=== PATIENT | male | born 1935 | race Caucasian/White ===

== ENCOUNTER 2017-10-08 11:45 | Inpatient (IN) | payer OTHER, BC ==
--- NOTE | 2017-10-08 12:11 | CPEKG ---
Heart Rate: 179 RR Interval: 335 QRSD Interval: 90 QT Interval: 260 QTC Interval: 449 QRS Dayhoit: 81 T Wave Dayhoit: 212 EKG Severity - ABNORMAL ECG - EKG Impression: ATRIAL FIBRILLATION WITH RAPID V-RATE EKG Impression: VENTRICULAR PREMATURE COMPLEX EKG Impression: BORDERLINE RIGHT AXIS DEVIATION EKG Impression: BORDERLINE INFERIOR Q WAVES EKG Impression: REPOLARIZATION ABNORMALITY, PROB RATE RELATED Electronically Signed By: Sebas Riggs 08-Oct-2017 15:07:30
--- NOTE | 2017-10-08 12:13 | EDPHY ---
H & P Stated Complaint: sob x 2 days, palpitations, R arm redness-swelling Time Seen by Provider: 10/08/17 12:12 - Medical/Surgical History Hx Asthma: No Hx Chronic Respiratory Disease: No Hx Diabetes: No Hx Cardiac Disease: Yes Hx Renal Disease: No Hx Cirrhosis: No Hx Alcoholism: No Hx HIV/AIDS: No Hx Splenectomy or Spleen Trauma: No Other PMH: afib. cardiac stent. hyperlipidemia - Social History Smoking Status: Never smoked Constitutional: Initial Vital Signs Heart Rate 128 H 10/08/17 11:55 Respiratory Rate 20 10/08/17 11:55 Blood Pressure 105/78 10/08/17 11:55 O2 Sat (%) 94 10/08/17 11:55 O2 Delivery Mode Room Air O2 (L/minute) 2 Allergies/Adverse Reactions: No Known Allergies Allergy (Verified 10/08/17 11:53) Home Medications: Medication Instructions Recorded Ascorbic Acid [Vitamin C 500 mg 1,000 mg PO DAILY 10/08/17 (*)] Aspirin [Aspirin 325 mg (*)] 325 mg PO DAILY 10/08/17 Cephalexin [Keflex (*)] 500 mg PO TID 10/08/17 Cholecalciferol Vit D3 [Vitamin D3 5,000 units PO DAILY 10/08/17 (*)] Furosemide [Lasix 20 MG (*)] 20 mg PO DAILY 10/08/17 Herbals/Supplements -Info Only 1 ea PO DAILY 10/08/17 Magnesium Oxide [Magnesium Oxide 400 mg PO BID 10/08/17 400 mg (*)] Metoprolol Succinate Xr [Toprol Xl 50 mg PO BID 10/08/17 50 mg (*)] Naproxen 500 mg PO DAILY PRN 10/08/17 Omeprazole [Prilosec 20 mg] 20 mg PO DAILY 10/08/17 Potassium Cl [Klor-Con 20 meq (*)] 20 meq PO DAILY 10/08/17 Rosuvastatin Calcium [Crestor 40mg 40 mg PO DAILY 10/08/17 (*)] Spironolactone [Aldactone 25 MG 25 mg PO DAILY 10/08/17 (*)] Warfarin Sodium [Coumadin 2.5MG 2.5 mg PO SUMOTUTHFRSA@16 10/08/17 (*)] Warfarin Sodium [Coumadin 5MG (*)] 5 mg PO WE@16 10/08/17 diphenhydrAMINE [Benadryl 25 MG 25 mg PO HS 10/08/17 (*)] predniSONE [Prednisone] 10 mg PO DAILY PRN 10/08/17 Medical Decision Making ED Course/Re-evaluation: CHIEF COMPLAINT: Chest pain, rapid heart rate, dyspnea HISTORY OF PRESENT ILLNESS: The patient is an anticoagulated 81 y/o male with a history of atrial fibrillation complaining of chest pressure, dyspnea, and weakness onset possibly this morning or possibly a few days ago. The patient has difficulty determining exact onset of these symptoms. He required WILILS and cardioversion for rapid atrial fibrillation in 2009. 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 He is currently being treated for cellulitis of his right arm with antibiotics and his chest pain and dyspnea symptoms began sometime after that infection began. He notes his INR on , 4 days ago, was 5.5, but he has not taken any Coumadin since then. Patient is a poor historian and is able to provide more reliable history. REVIEW OF SYSTEMS: A 10 point review of systems was performed and is negative with the exception of the elements mentioned in the history of present illness. PHYSICAL EXAM: HR 180, BP, O2 Sat, RR. Temp noted General Appearance: Alert, well hydrated, appropriate, and non-toxic appearing. Head: Atraumatic without scalp tenderness or obvious injury Eyes: Pupils equal, round, reactive to light and accommodation, EOMI, no trauma , no injection. Nose: Atraumatic, no rhinorrhea, clear. Throat: Mucus membranes moist. Neck: Supple, nontender, no lymphadenopathy. Respiratory: No retractions, no distress, no wheezes, and no accessory muscle use. Lungs are clear to auscultation bilaterally. Cardiovascular: Rapid irregular rate and rhythm, no murmurs, rubs, or gallops. Good capillary refill all extremities. Gastrointestinal: Abdomen is soft, nontender, non-distended, no masses, no rebound, no guarding, no peritoneal signs. Musculoskeletal: Normal active ROM of all extremities, atraumatic. Neurological: Alert, appropriate, and interactive. The patient has non-focal cranial nerves, motor, sensory, and cerebellar exam. Skin: Cellulitis right arm, good turgor, no nodules on palpation. Past medical history: atrial fibrillation, CHF Past surgical history: Electrical cardioversion 2009 Family history: Noncontributory Social history: at bedside. Lives in [place]. Retired. Nonsmoker. Prior medical records reviewed including cardiology procedure note from 2009 for cardioversion. DIAGNOSTICS/PROCEDURES/CRITICAL CARE TIME: The 12 lead EKG was interpreted by myself. Rapid atrial fibrillation rate 180. See hard copy and/or "tracemaster" electronic copy for interpretation. Critical care time spent by me, Dr. Riggs, exclusively with this patient was 90 minutes, exclusive of PA time and exclusive of procedures. The organ system at risk was cardiovascular. Time spent in urgent assessment, consideration of interventions, review of medical history, discussion with patient and family, review of EKG, and multiple consultations with cardiology.. DIFFERENTIAL DIAGNOSIS: The differential diagnosis for the patient's narrow complex tachycardia included but was not limited to various causes of sinus tachycardia such as dehydration and medicines, SVT, atrial flutter, atrial fibrillation, pulmonary causes. MEDICAL DECISION MAKING: This is an 81 y/o male with a history of atrial fibrillation who presents with an unstable tachydysrhythmia with dyspnea and chest pressure of uncertain onset (hours to days). He is symptomatic with a HR of 180 upon arrival here. He has not taken Coumadin for 4 days due to last INR of 5.5. Prior cardioversion required WILLIS and showed an atrial appendage thrombus. Although this is an unstable tachydysrhythmia, it is not safe to cardiovert him immediately down here due to high risk for thrombus. Plan for rate control with 20mg IV Diltazem bolus and 20mg/hr drip, rushed INR, WILLIS, and cardioversion upstairs with cardiology. 1230: Consulted with [facility]. Dr. Paige will assess in the ED. 1244: Spoke with hospitalist service. Dr. Davis accepts admission. Patient is subtherapeutic on his Coumadin at 1.25. Rate currently between 150-160. 1300: BP now in 60s systolic. HR between 150-180. He is still mentating appropriately. I called cardiology again as they have not assessed him yet in the ED. They said bring him to the [facility] now for cardioversion. 1306: RN called to give report and was told they now do not plan to cardiovert and want him admitted to the hospitalist service with medication management instead. I am calling Dr. Paige again so it is clear that the patient is unstable, hypotensive, symptomatic and needs to be cardioverted now. 1308: Spoke with Dr. Paige. He says the message that the patient was unstable was not relayed to him. He says Dr. Lemus, rough rice tender, will come down to the ED. 1313: Dr. Lemus in the ED assessing patient. Troponin elevated at 0.043. BNP elevated at 3640. 1355: Patient has left the department for the [facility]. - Data Points Laboratory Results: Laboratory Results 10/08/17 12:15 10/08/17 12:29 10/08/17 10/08/17 10/08/17 12:29 12:22 12:15 WBC 10.39 10^3/uL H 10^3/uL (3.80-9.50) RBC 6.76 10^6/uL H 10^6/uL (4.40-6.38) Hgb 16.7 g/dL g/dL (13.7-17.5) Hct 52.6 % H % (40.0-51.0) MCV 77.8 fL L fL (81.5-99.8) MCH 24.7 pg L pg (27.9-34.1) MCHC 31.7 g/dL L g/dL (32.4-36.7) RDW 21.0 % H % (11.5-15.2) Plt Count 221 10^3/uL 10^3/uL (150-400) MPV 10.4 fL fL (8.7-11.7) Neut % (Auto) 71.3 % % (39.3-74.2) Lymph % (Auto) 13.0 % L % (15.0-45.0) [place] % (Auto) 13.8 % H % (4.5-13.0) Eos % (Auto) 0.5 % L % (0.6-7.6) Baso % (Auto) 0.5 % % (0.3-1.7) Nucleat RBC Rel Count 0.0 % % (0.0-0.2) Absolute Neuts (auto) 7.42 10^3/uL H 10^3/uL (1.70-6.50) Absolute Lymphs (auto) 1.35 10^3/uL 10^3/uL (1.00-3.00) Absolute Monos (auto) 1.43 10^3/uL H 10^3/uL (0.30-0.80) Absolute Eos (auto) 0.05 10^3/uL 10^3/uL (0.03-0.40) Absolute Basos (auto) 0.05 10^3/uL 10^3/uL (0.02-0.10) Absolute Nucleated RBC 0.00 10^3/uL 10^3/uL (0-0.01) Immature Gran % 0.9 % % (0.0-1.1) Immature Gran # 0.09 10^3/uL 10^3/uL (0.00-0.10) Platelet Estimate ADEQUATE (ADEQ) Polychromasia 1+ H Microcytic Cells 2+ H PT 15.9 SEC H SEC (12.0-15.0) INR 1.25 H (0.83-1.16) APTT 31.4 SEC SEC (23.0-38.0) Sodium 129 mEq/L L mEq/L (135-145) Potassium 4.2 mEq/L mEq/L (3.5-5.2) Chloride 93 mEq/L L mEq/L (97-110) Carbon Dioxide 21 mEq/l L mEq/l (22-31) Anion Gap 15 mEq/L mEq/L (8-16) BUN 21 mg/dL mg/dL (7-23) Creatinine 0.9 mg/dL mg/dL (0.7-1.3) Estimated GFR > 60 Glucose 201 mg/dL H mg/dL (70-100) Calcium 8.6 mg/dL mg/dL (8.5-10.4) Troponin I 0.043 ng/mL H ng/mL (0.000-0.034) NT-Pro-B Natriuret Pep 3640 pg/mL H pg/mL (0-450) Medications Given: Discontinued Medications Diltiazem HCl (Cardizem 25 Mg/5 Ml Vial) 20 mg IVP EDNOW ONE Stop: 10/08/17 12:29 Last Admin: 10/08/17 12:33 Dose: 20 mg Diltiazem HCl 125 mg/ Dextrose 125 mls @ 0 mls/hr IV EDNOW ONE; Titrate PRN Reason: Protocol Stop: 10/08/17 12:29 Last Admin: 10/08/17 12:56 Dose: 125 mls Departure - Departure Disposition: [facility] Inpatient Acute Clinical Impression: Rapid atrial fibrillation, Subtherapeutic anticoagulation, Elevated troponin Chest pain Qualifiers: Chest pain type: other chest pain Qualified Code(s): R07.89 - Other chest pain Dyspnea Qualifiers: Dyspnea type: shortness of breath Qualified Code(s): R06.02 - Shortness of breath Condition: Fair Referrals: Gold Stringer MD [Medical Doctor] - As per Instructions Report Scribed for: Sebas Riggs Report Scribed by: Jenny Childs Date of Report: 10/08/17 Time of Report: 12:45
[2017-10-08] MEDS ORDERED: PROPOFOL 200 MG/20 ML VIAL ONE ×2 (12:20→14:45)
[2017-10-08] MEDS ORDERED: KETAMINE 200 MG/20 ML VIAL ONE (12:20)
[2017-10-08] MEDS ORDERED: DILTIAZEM 125 MG in D5W 125 ML IV ONE (12:28)
[2017-10-08] MEDS ORDERED: DILTIAZEM 25 MG/5 ML VIAL IVP ONE (12:28)
[2017-10-08 12:33] LABS: PLATELET COUNT 221 10^3/uL (150-400)
[2017-10-08 12:39] LABS: INR 1.25 (0.83-1.16); PROTIME(PATIENT) 15.9 SEC (12.0-15.0)
[2017-10-08] MEDS ORDERED: ATROPINE SULFATE 1 MG/10 ML SYR IVP ONE ×2 (13:28→14:05)
[2017-10-08] MEDS ORDERED: NS 1,000 ML IV ONE (13:28)
[2017-10-08] MEDS ORDERED: ACETAMINOPHEN 325 MG TAB PO PRN (13:32)
[2017-10-08] MEDS ORDERED: ONDANSETRON DISINTEGRATING 4 MG TAB PO PRN (13:32)
[2017-10-08] MEDS ORDERED: ONDANSETRON 4 MG/2 ML VIAL IVP PRN (13:32)
[2017-10-08] MEDS ORDERED: NS 1,000 ML IV SCH (13:45)
[2017-10-08] MEDS ORDERED: MIDAZOLAM 2 MG/2 ML VIAL IVP ONE (14:05)
[2017-10-08] MEDS ORDERED: fentaNYL 100 MCG/2 ML INJ IVP ONE (14:05)
[2017-10-08] MEDS ORDERED: BENZOCAINE UNIT DOSE SPRAY HURRICAINE MM ONE (14:05)
[2017-10-08] MEDS ORDERED: NS 500 ML IV ONE (14:05)
--- NOTE | 2017-10-08 14:13 | PDHPUP ---
History & Physical Update H&P update statement: This history and physical update is based on an assessment of the patient which was completed after admission or registration (within 24 hours), but prior to the surgery/procedure. H&P update: H&P reviewed & patient examined, no change in patient's condition since H&P completed
[2017-10-08] MEDS ORDERED: ENOXAPARIN 80 MG/0.8 ML SYR SC ONE (14:30)
[2017-10-08] MEDS ORDERED: predniSONE 10 MG TAB PO PRN (14:35)
[2017-10-08] MEDS ORDERED: WARFARIN SODIUM 2.5 MG TAB PO ONE (14:37)
--- NOTE | 2017-10-08 14:45 | PDANEPAE ---
ANE History of Present Illness 81 yo for obie/cv ANE Past Medical History - Cardiovascular History Hx Hypertension: Yes Hx Arrhythmias: Yes Hx Coronary Artery / Peripheral Vascular Disease: Yes - Pulmonary History Hx Oxygen in Use at Home: No - Endocrine History Hx Diabetes: No ANE Review of Systems Review of Systems: - Exercise capacity METS (RN): 4 METS ANE Patient History - Allergies Allergies/Adverse Reactions: No Known Allergies Allergy (Verified 10/08/17 11:53) - Home Medications Home medications: home medication list seen and reviewed Home Medications: Ascorbic Acid [Vitamin C 500 mg (*)] 1,000 mg PO DAILY 10/08/17 [Last Taken 04/13] Aspirin [Aspirin 325 mg (*)] 325 mg PO DAILY 10/08/17 [Last Taken 10/04/17] Cephalexin [Keflex (*)] 500 mg PO TID 10/08/17 [Last Taken 10/08/17] Cholecalciferol Vit D3 [Vitamin D3 (*)] 5,000 units PO DAILY 10/08/17 [Last Taken 10/04/17] Furosemide [Lasix 20 MG (*)] 20 mg PO DAILY 10/08/17 [Last Taken 10/08/17] Herbals/Supplements -Info Only 1 ea PO DAILY 10/08/17 [Last Taken Unknown] Magnesium Oxide [Magnesium Oxide 400 mg (*)] 400 mg PO BID 10/08/17 [Last Taken 10/04/17] Metoprolol Succinate Xr [Toprol Xl 50 mg (*)] 50 mg PO BID 10/08/17 [Last Taken 10/08/17] Naproxen 500 mg PO DAILY PRN 10/08/17 [Last Taken Unknown] Omeprazole [Prilosec 20 mg] 20 mg PO DAILY 10/08/17 [Last Taken 10/04/17] Potassium Cl [Klor-Con 20 meq (*)] 20 meq PO DAILY 10/08/17 [Last Taken 10/04/17 ] Rosuvastatin Calcium [Crestor 40mg (*)] 40 mg PO DAILY 10/08/17 [Last Taken 04/13] Spironolactone [Aldactone 25 MG (*)] 25 mg PO DAILY 10/08/17 [Last Taken ] Warfarin Sodium [Coumadin 2.5MG (*)] 2.5 mg PO SUMOTUTHFRSA@16 10/08/17 [Last Taken 10/04/17] Warfarin Sodium [Coumadin 5MG (*)] 5 mg PO WE@16 10/08/17 [Last Taken 10/03/17] diphenhydrAMINE [Benadryl 25 MG (*)] 25 mg PO HS 10/08/17 [Last Taken 10/04/17] predniSONE [Prednisone] 10 mg PO DAILY PRN 10/08/17 [Last Taken Unknown] - Smoking Hx Smoking Status: Never smoked ANE Labs/Vital Signs - Labs Result Diagrams: 10/08/17 12:15 10/08/17 12:29 - Vital Signs Blood Pressure: 112/98 Heart Rate: 169 Respiratory Rate: 16 O2 Sat (%): 95 Weight: 81.647 kg ANE Physical Exam - Airway Neck exam: FROM Mallampati Score: Class 2 Mouth exam: normal dental/mouth exam - Pulmonary Pulmonary: no respiratory distress - Cardiovascular Cardiovascular: regular rate and rhythym - ASA Status ASA Status: II ANE Anesthesia Plan Anesthesia Plan: GA with mask
--- NOTE | 2017-10-08 14:53 | GCON ---
[f rep st] CONSULTATION DATE OF CONSULTATION: 10/08/2017 REFERRING PHYSICIAN: Sebas Riggs MD OTHER REFERRING PHYSICIAN: Dr. Segundo Davis, from the hospitalist service. REASON FOR CONSULTATION: Atrial fibrillation with rapid ventricular response. HISTORY OF PRESENT ILLNESS: The patient presents to the emergency room today complaining of fairly a cute onset of significant shortness of breath. He felt fairly well yesterday, but this morning got u p to get around and was experiencing significant dyspnea. He did not have any chest discomfort. He did not feel a sensation of rapid palpitations. He is usually followed at [facility]. I n fact, he had an appointment with Dr. Moi Stringer scheduled for this afternoon. However, he felt so poorly that they called to cancel that appointment and came to the emergency room. In the ER, he was found to be in atrial fibrillation with a rapid ventricular heart rate. His ventricular rate was in the range of 150-160 bpm. The first blood pressure recorded was 105/78. He became hypotensive afte r receiving a bolus dose of intravenous diltiazem. At the time of my assessment, his blood pressure is back to 105 mmHg systolic. He appears to be comfortable in the emergency room and does not demons trate significant signs of fluid overload. He has a history of CAD with prior PCIs of the circumflex and LAD performed in 2009. 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 Past assessments have shown preserved left vent ricular systolic function. He had his last echocardiogram and stress test at [facility] approximately a year ago. He had atrial fibrillation in 2009, which required cardioversion. He has not had recurrences of atrial fibrillation over the ensuing 8 years. He is on chronic systemic antic oagulation with warfarin. Recently, he has tended to be supratherapeutic. He was seen in the emerge ncy room at [facility] last for a right forearm cellulitis. His INR at that t dali was 5.5. He held his warfarin for the past 4 days and now his INR is 1.2. PAST MEDICAL HISTORY: Apart from the cardiovascular issues outlined above, he is generally healthy. He does not have hypertension, pulmonary, GI, renal, or neurologic disease. He was given a diagnosi s of type 2 diabetes at the beginning of this year and had been working on dietary changes for manage ment. MEDICATIONS: Please refer to the electronic record. Relevant cardiac medications consist of aspirin , potassium supplement, warfarin, spironolactone, rosuvastatin, metoprolol, and furosemide. ALLERGIES: No known drug allergies. SOCIAL HISTORY: He is . His accompanies him to the hospital today. He is a nonsmoker a nd does not consume significant amounts of alcohol. REVIEW OF SYSTEMS: Notable for his significant shortness of breath and right forearm swelling and di scomfort. Otherwise, a 10-point review was negative. PHYSICAL EXAMINATION: VITAL SIGNS: Heart rate 150s with atrial fibrillation on the monitor. Blood pressure 112/98. Room air O2 saturation 95%. GENERAL: Well-developed, obese male in no acute distr ess. He is alert and oriented x3. HEAD AND NECK: No scleral icterus. Mucous membranes moist. Car otid pulses 2+ without bruits. CHEST: Lung mello clear to auscultation bilaterally. CARDIAC: Tac hycardic. Irregularly irregular rhythm, without a murmur. ABDOMEN: Obese, soft, and nontender, wit hout masses. Normal bowel sounds. EXTREMITIES: 2+ pulses and no peripheral edema. LABORATORY STUDIES: Sodium 129, potassium 4.2, BUN and creatinine 21 and 0.9. Troponin is 0.043. H is BNP is 3640. CBC demonstrates a white blood cell count of 10.3, with hemoglobin and hematocrit of 16.7 and 52.6. Platelet count 220,000. His INR is 1.25. ECG: His ECG demonstrates atrial fibrillation with a ventricular rate of 179 bpm. He has no Q-waves or conduction system disturbances. He has nonspecific ST-T wave abnormalities. IMPRESSION: This is an 81-year-old male who has history of coronary artery disease and prior percuta neous coronary interventions. He has had paroxysmal atrial fibrillation requiring cardioversion in 2 010. He now presents with recurrent atrial fibrillation and rapid ventricular response. Initial att empts at pharmacologic therapy for rate control produced hypotension. This has resolved. He does no t demonstrate any gross evidence of volume overload/congestive heart failure. His BNP is elevated an d he likely has a component of diastolic dysfunction. His mild troponin elevation likely represents myocardial supply/demand mismatch in the setting of his tachycardia. He is not experiencing any symp toms suggestive of angina. PLAN: Preparations will be made for the patient to go to the [facility] this afternoon for WILLIS guided cardi oversion. He will then be admitted to the hospitalist service for observation. His blood sugars hav e continued to escalate despite his recent attempts at dietary modification. He has a right forearm cellulitis for which he has been taking outpatient antibiotics with little improvement. /[id number]/MODL
--- NOTE | 2017-10-08 15:07 | POSTANESTH ---
Post Anesthetic Evaluation Cardiovascular Status: Normal, Stable Respiratory Status: Normal, Stable Level of Consciousness/Mental Status: Can Participate in Eval Pain Control: Adequate, Prn Tx Ordered Nausea/Vomiting Control: Adequate, Prn Tx Ordered Complications Possibly Related to Anesthesia: None Noted
--- NOTE | 2017-10-08 15:09 | CPEKG ---
Heart Rate: 84 RR Interval: 714 P-R Interval: 107 QRSD Interval: 92 QT Interval: 360 QTC Interval: 426 P Tiona: 0 QRS Tiona: 69 T Wave Tiona: 145 EKG Severity - ABNORMAL ECG - EKG Impression: SINUS RHYTHM EKG Impression: MULTIPLE ATRIAL PREMATURE COMPLEXES EKG Impression: SHORT [place] INTERVAL, ACCELERATED AV CONDUCTION EKG Impression: ABNORMAL T, CONSIDER ISCHEMIA, LATERAL LEADS Electronically Signed By: Damian Reardon 09-Oct-2017 11:49:11
--- NOTE | 2017-10-08 15:23 | PDTEE1 ---
WILLIS Cardioversion Procedure Procedure: electrical cardioversion Indications: atrial fibrillation Consent: signed and in chart Anticoagulation: warfarin Procedural Details: Pads were placed in anterior-posterior position. WILLIS probe was advanced and standard images obtained. There is no evidence of left atrial or left atrial appendage thrombus. Synchronized cardioversion attempt #1: 200J Results: normal sinus rhythm Conclusions: successful WILLIS cardioversion Patient Problems: Problems Problem Status Onset Chest pain Acute Dyspnea Acute Elevated troponin Acute Rapid atrial fibrillation Acute Subtherapeutic anticoagulation Acute
--- NOTE | 2017-10-08 16:37 | PDGENHP ---
History and Physical - Chief Complaint Acute shortness of breath - History of Present Illness Primary care provider: Dr. crump Primary low emission automobile designer: Dr. Moi Stringer HPI: 81-year-old male presenting with acute shortness of breath characterized as inability to ambulate several steps without becoming severely dyspneic, with associated chest pressure located in the anterior central chest, as well as palpitations and generalized weakness. The onset of the symptoms was on the morning of presentation, duration was persistent thereafter. The patient was in atrial fibrillation and rate of 170, with a systolic blood pressure that dropped down to 60 in the emergency department. The decision was made for emergent DC cardioversion with transesophageal echocardiogram prior to the procedure given the patient's subtherapeutic INR. The symptoms occurred in the setting of approximately 1 week of right upper extremity edema, erythema, tenderness, for which the patient was seen in the [facility] Emergency Department approximately 5 days ago. The patient was prescribed oral Keflex and he initiated on 10/04, without any appreciable benefit. During this interval, the patient has noted significant fatigue, increased sleepiness, poor oral intake, and nausea exacerbated with oral intake of solids and liquids. The patient has been taking his home medications with the exception of Coumadin, which was discontinued last week in the setting of an INR of 5.5. History Information - Allergies/Home Medication List Allergies/Adverse Reactions: No Known Allergies Allergy (Verified 10/08/17 11:53) Home Medications: Ascorbic Acid [Vitamin C 500 mg (*)] 1,000 mg PO DAILY 10/08/17 [Last Taken 04/13] Aspirin [Aspirin 325 mg (*)] 325 mg PO DAILY 10/08/17 [Last Taken 10/04/17] Cephalexin [Keflex (*)] 500 mg PO TID 10/08/17 [Last Taken 10/08/17] Cholecalciferol Vit D3 [Vitamin D3 (*)] 5,000 units PO DAILY 10/08/17 [Last Taken 10/04/17] Furosemide [Lasix 20 MG (*)] 20 mg PO DAILY 10/08/17 [Last Taken 10/08/17] Herbals/Supplements -Info Only 1 ea PO DAILY 10/08/17 [Last Taken Unknown] Magnesium Oxide [Magnesium Oxide 400 mg (*)] 400 mg PO BID 10/08/17 [Last Taken 10/04/17] Metoprolol Succinate Xr [Toprol Xl 50 mg (*)] 50 mg PO BID 10/08/17 [Last Taken 10/08/17] Naproxen 500 mg PO DAILY PRN 10/08/17 [Last Taken Unknown] Omeprazole [Prilosec 20 mg] 20 mg PO DAILY 10/08/17 [Last Taken 10/04/17] Potassium Cl [Klor-Con 20 meq (*)] 20 meq PO DAILY 10/08/17 [Last Taken 10/04/17 ] Rosuvastatin Calcium [Crestor 40mg (*)] 40 mg PO DAILY 10/08/17 [Last Taken 04/13] Spironolactone [Aldactone 25 MG (*)] 25 mg PO DAILY 10/08/17 [Last Taken ] Warfarin Sodium [Coumadin 2.5MG (*)] 2.5 mg PO SUMOTUTHFRSA@16 10/08/17 [Last Taken 10/04/17] Warfarin Sodium [Coumadin 5MG (*)] 5 mg PO WE@16 10/08/17 [Last Taken 10/03/17] diphenhydrAMINE [Benadryl 25 MG (*)] 25 mg PO HS 10/08/17 [Last Taken 10/04/17] predniSONE [Prednisone] 10 mg PO DAILY PRN 10/08/17 [Last Taken Unknown] I have personally reviewed and updated: family history, medical history, social history, surgical history - Past Medical History atrial fibrillation (With DC cardioversion and transesophageal echocardiogram in 2009, atrial appendage noted, placed on systemic anticoagulation thereafter) , coronary artery disease (Status post 2 stents placed in 2009), diabetes type 2 (But most recent hemoglobin A1c 10%, no pharmacotherapy), hyperlipidemia Additional medical history: Recent diagnosis of right upper extremity cellulitis , began with a notable bullous on the right ventral forearm - Surgical History Additional surgical history: Cardiac stent, DC cardioversion - Family History Additional family history: No family history of venous thromboembolism or skin disorders - Social History Smoking Status: Never smoked Alcohol Use: None Drug Use: None Additional social history: Patient reports that he is physically active at baseline, he last used a stationary bike 5 days ago and did not experience any chest pain or shortness of breath Review of Systems Review of Systems: ROS: 10pt was reviewed & negative except for what was stated in HPI & below Constitutional: Reports: weakness Cardiac: Reports: chest pain, palpitations Respiratory: Reports: shortness of breath Skin: Reports: other (Erythema and edema in the right upper extremity) Physical Exam Physical Exam: Temp Pulse Resp BP Pulse Ox 169 H 16 112/98 H 95 10/08/17 14:45 10/08/17 14:45 10/08/17 14:45 10/08/17 14:45 O2 (L/minute) 2 Constitutional: uncomfortable, No not in pain (Mild right upper extremity) Eyes: PERRL, anicteric sclera, EOMI Ears, Nose, Mouth, Throat: hearing normal, other (Tacky mucous membranes) Cardiovascular: irregularly irregular, tachycardia, edema (2+ right upper extremity), No systolic murmur Respiratory: reduced air movement (Bilateral bases), inspiratory crackles ( Bilaterally), No expiratory wheeze, No bronchial breath sounds Gastrointestinal: normoactive bowel sounds, soft, non-tender abdomen, no palpable masses, No distension Skin: other (Induration, soft tissue edema in the right upper extremity, fluctuance around the right elbow, blanchable, could fluid over the entire forearm, extending proximally into the right humerus) Musculoskeletal: other (Painful extension at 160 degrees in the right upper extremity, painful flexion at 60 degrees right upper extremity, tenderness over the right olecranon bursa which is fluctuant) Neurologic: AAOx3, sensation intact bilaterally, No weakness, No facial droop Psychiatric: interacting appropriately, not anxious, not encephalopathic, thought process linear Lab Data & Imaging Review 10/08/17 12:15 10/08/17 12:29 WBC 10.39 10^3/uL (3.80-9.50) H 10/08/17 12:15 RBC 6.76 10^6/uL (4.40-6.38) H 10/08/17 12:15 Hgb 16.7 g/dL (13.7-17.5) 10/08/17 12:15 Hct 52.6 % (40.0-51.0) H 10/08/17 12:15 MCV 77.8 fL (81.5-99.8) L 10/08/17 12:15 MCH 24.7 pg (27.9-34.1) L 10/08/17 12:15 MCHC 31.7 g/dL (32.4-36.7) L 10/08/17 12:15 RDW 21.0 % (11.5-15.2) H 10/08/17 12:15 Plt Count 221 10^3/uL (150-400) 10/08/17 12:15 MPV 10.4 fL (8.7-11.7) 10/08/17 12:15 Neut % (Auto) 71.3 % (39.3-74.2) 10/08/17 12:15 Lymph % (Auto) 13.0 % (15.0-45.0) L 10/08/17 12:15 [place] % (Auto) 13.8 % (4.5-13.0) H 10/08/17 12:15 Eos % (Auto) 0.5 % (0.6-7.6) L 10/08/17 12:15 Baso % (Auto) 0.5 % (0.3-1.7) 10/08/17 12:15 Nucleat RBC Rel Count 0.0 % (0.0-0.2) 10/08/17 12:15 Absolute Neuts (auto) 7.42 10^3/uL (1.70-6.50) H 10/08/17 12:15 Absolute Lymphs (auto) 1.35 10^3/uL (1.00-3.00) 10/08/17 12:15 Absolute Monos (auto) 1.43 10^3/uL (0.30-0.80) H 10/08/17 12:15 Absolute Eos (auto) 0.05 10^3/uL (0.03-0.40) 10/08/17 12:15 Absolute Basos (auto) 0.05 10^3/uL (0.02-0.10) 10/08/17 12:15 Absolute Nucleated RBC 0.00 10^3/uL (0-0.01) 10/08/17 12:15 Immature Gran % 0.9 % (0.0-1.1) 10/08/17 12:15 Immature Gran # 0.09 10^3/uL (0.00-0.10) 10/08/17 12:15 Platelet Estimate ADEQUATE (ADEQ) 10/08/17 12:15 Polychromasia 1+ H 10/08/17 12:15 Microcytic Cells 2+ H 10/08/17 12:15 PT 15.9 SEC (12.0-15.0) H 10/08/17 12:22 INR 1.25 (0.83-1.16) H 10/08/17 12:22 APTT 31.4 SEC (23.0-38.0) 10/08/17 12: Sodium 129 mEq/L (135-145) L 10/08/17 12:29 Potassium 4.2 mEq/L (3.5-5.2) 10/08/17 12: Chloride 93 mEq/L (97-110) L 10/08/17 12: Carbon Dioxide 21 mEq/l (22-31) L 10/08/17 12: Anion Gap 15 mEq/L (8-16) 10/08/17 12: BUN 21 mg/dL (7-23) 10/08/17 12: Creatinine 0.9 mg/dL (0.7-1.3) 10/08/17 12: Estimated GFR > 60 10/08/17 12: Glucose 201 mg/dL (70-100) H 10/08/17: Calcium 8.6 mg/dL (8.5-10.4) 10/08/17 12: Troponin I 0.043 ng/mL (0.000-0.034) H 10/08/17 12:29 NT-Pro-B Natriuret Pep 3640 pg/mL (0-450) H 10/08/17 12:29 Visualized and Interpreted Chest x-ray results: Yes Chest X-Ray results: other (Bilateral interstitial infiltrates with small right- sided effusion) Visualized and Interpreted EKG results: Yes EKG Interpretation: Positive for: other (Rapid AFib with ST depression in the lateral leads) Assessment & Plan Assessment: 81-year-old male presents with paroxysmal atrial fibrillation and acute rapid ventricular response resulting in acute hypotension in the setting of right upper extremity cellulitis Plan: 1. Paroxysmal atrial fibrillation. Acute rapid ventricular response, likely provoked by patient's cellulitis and resulting in diastolic congestive heart failure exacerbation as well as possible hemodynamic instability and acute hypotension -discussed with Dr. Moi Lemus, we both agree the patient requires emergent DC cardioversion at this time preceded by transesophageal echocardiogram to ensure no atrial thrombus in the setting of subtherapeutic INR -continue on home beta-cristofer therapy after patient has been successfully cardioverted, monitor for any ongoing hypotension -continue monitor on telemetry and if the patient experiences recurrent AFib, consider amiodarone load -continue systemic anticoagulation with therapeutic Lovenox, re-initiation of Coumadin today, 5 mg, then regular home dosing thereafter -monitor daily INR 2. Cellulitis. Right upper extremity, unclear whether there is underlying septic bursitis, his range of motion and tenderness over the olecranon bursa is concerning but I would not recommend putting a needle in the area given the overlying cellulitis and possibility of creating septic joint -patient has failed outpatient oral antibiotic therapy with a reasonable course of Keflex 500 mg 4 times daily x4 days -per patient, the area is worsening, will place on IV vancomycin 1.25g q.12 hours -get ultrasound of the right olecranon bursa as well as right mid forearm to evaluate for abscess or abnormal bursa fluid collection -will get Infectious Disease consultation tomorrow if the affected area does not appear to be improving -will get [facility] Emergency Department records to compare with the initial assessment as well as any imaging results 3. Hyponatremia. Acute, most likely secondary to renal hypoperfusion in the setting of hypotension, cardiovert back into a normal sinus mechanism to improve cardiac output -monitor strict I&Os, creatinine level in a.m. 4. Acute diastolic congestive heart failure exacerbation. Secondary to AFib RVR, the patient with clear evidence of renal hypoperfusion and hypotension from poor cardiac output, resulting in interstitial infiltrates, BNP of 3600, troponin of 0.04 indicating myocardial strain and increasing his risk of worsening morbidity and/or mortality -cardioversion is the intervention of choice to improve cardiac output -hold on diuresis until oxygen requirements reassessed tomorrow a.m. 5. Coronary artery disease. Chronic, elevated troponin most likely secondary to myocardial strain in the setting of AFib RVR and diastolic CHF -continue aspirin 6. Hypotension. Acute, secondary to poor cardiac output in the setting of rapid AFib and hypovolemia -35 min of critical care time spent with this patient and his , coordinating care with Dr. Mio Lemus and the emergency department, addressing this issue specifically as well as the other comorbid conditions which render him critically ill with high risk of worsening morbidity and/or mortality and requiring emergent DC cardioversion Diet. Regular after cardioversion Prophylaxis. High risk patient, on Lovenox Code. Full per patient, his is MD POA Disposition. Anticipated discharge uncertain this time, anticipated length stay is greater than 48 hr for reasonable medical necessity including acute cellulitis refractory to appropriate oral outpatient therapy, complicated by high risk comorbid acute hypotension, paroxysmal atrial fibrillation with acute rapid acute hyponatremia, acute diastolic congestive heart failure.
--- NOTE | 2017-10-08 17:22 | ECHO ---
[email or web address] [address] [address] Main: [phone] Fax: Transesophageal Echocardiography Name: VENU STAUFFER MR#: [id number] Study Date: 10/08/2017 Study Time: 02:42 PM Date of : 1935 Age: 81 year(s) Height: ( ) Weight: ( ) BSA: Gender: Male Examination: WILLIS Indication: Atrial Fibrillation Image Quality: Contrast: Requested by: Moi Lemus Heart Rate: Rhythm: BP: / Procedure Staff Assistant Professor Of Anthropology: Corrine Penaloza RDCS Reading Physician: Moi Lemus Requesting Provider: WILLIS Exam Details Measurements: Chambers Valvular Assessment AV/MV Valvular Assessment TV/PV Normal Normal Normal Name Value Range Name Value Range Name Value Range Additional Measurements: Findings: Left Ventricle: Normal global systolic LV function. Left Atrium: No thrombus is noted in the left atrium. Left Atrial Appendage: No thrombus in left appendage. Mitral Valve: Mild mitral valve regurgitation is present. Aortic Valve: The aortic valve is tri-leaflet. There is no aortic valve regurgitation. l1n (No Signature Object) Patient: VENU STAUFFER Study Date: 10/08/2017 Page 1 of 2 02:42 PM Patient: VENU STAUFFER Study Date: 10/08/2017 Page 2 of 2 02:42 PM [id number]
[2017-10-08] MEDS ORDERED: VANCOMYCIN 1.25 GM in D5W 250 ML IV SCH (18:00)
[2017-10-08] MEDS: VANCOMYCIN 1.25 GM in NS 250 ML IV SCH (18:12)
[2017-10-08] MEDS ORDERED: D50W 25 GM/50 ML SYR IVP PRN (18:49)
[2017-10-08] MEDS: diphenhydrAMINE 25 MG CAP PO SCH (20:05)
[2017-10-08] MEDS: METOPROLOL SUCCINATE XR 50 MG TAB PO SCH (20:06)
[2017-10-08] MEDS: WARFARIN SODIUM 2.5 MG TAB PO SCH (20:06)
[2017-10-08] MEDS: INSULIN GLARGINE 100 UNITS/ML UNIT SC SCH (21:48)
[2017-10-08] MEDS: MAGNESIUM OXIDE 400 MG TAB PO SCH (22:05)
[2017-10-08] MEDS: INSULIN REGULAR HUMAN 100 UNIT/ML UNIT SC SCH (22:05)
[2017-10-09] MEDS: ENOXAPARIN 80 MG/0.8 ML SYR SC SCH ×2 (04:33→18:10)
[2017-10-09 05:10] LABS: PLATELET COUNT 184 10^3/uL (150-400)
[2017-10-09 05:18] LABS: INR 1.41 (0.83-1.16); PROTIME(PATIENT) 17.4 SEC (12.0-15.0)
[2017-10-09] MEDS: VANCOMYCIN 1.25 GM in NS 250 ML IV SCH ×2 (06:49→17:10)
[2017-10-09] MEDS ORDERED: Herbals/Supplements -Info Only PO SCH (09:00)
[2017-10-09] MEDS: METOPROLOL SUCCINATE XR 50 MG TAB PO SCH ×2 (09:29→20:02)
[2017-10-09] MEDS: INSULIN REGULAR HUMAN 100 UNIT/ML UNIT SC SCH ×4 (09:46→21:17)
--- NOTE | 2017-10-09 11:14 | PDMN ---
Medical Necessity Medical necessity: est los>2mn for acute cellulitis w/failed OP treatment, complicated by high risk comorbid acute hypotension, PAF w/RVR, hyponatremia, and acute diastolic CHF exacerbation; hx CAD, DM, HLD; per order and H&P
--- NOTE | 2017-10-09 12:16 | PDCARPN ---
Cardiology Progress Note Assessment/Plan: Paroxysmal Atrial Fibrillation: Maintaining sinus rhythm following cardioversion yesterday afternoon. - Continue systemic anticoagulation. Being covered with LMWH until INR returns to the therapeutic range. Coronary Artery Disease: No symptoms of angina. He had a normal nuclear stress test at a [facility] in early 2017. ([facility] records placed on the physical chart for information purposes.) Also had an echocardiogram demonstrating normal left ventricular systolic function and no hemodynamically significant valvular heart disease. - Continue secondary prevention regimen. Acute Diastolic CHF: Dyspnea significantly improved following cardioversion. Not grossly overloaded. - Resume outpatient dose of furosemide. Cellulitis: Rt forearm still swollen and erythematous. - Now on IV vancomycin. 10/09/17 12:14 Subjective: Breathing much better. Right arm still hurts. Reviewed/Discussed With: family Objective: Vital Signs (8 Hrs) Temp Pulse Resp BP Pulse Ox 10/09/17 11:09 37.4 C 87 16 135/70 H 93 10/09/17 07:37 36.8 C 83 16 117/62 95 Intake/Output (24 Hrs) 10/08/17 10/09/17 10/10/17 05:59 05:59 05:59 Intake Total 850 Balance 850 Intake: Oral (ml) 600 IV Infused (ml) 250 Vancomycin 1.25 gm In Ns 250 250 ml @ 166.67 mls/hr IV Q12H [facility] Rx#:[id number] Other: Weight 72.1 kg Number of Voids Toilet 1 Number of Stools Toilet 1 Result Diagrams: 10/09/17 04:30 10/09/17 04:30 Cardiac Labs: Cardiac Lab Results (72 Hrs) 10/09/17 10/08/17 04:30 20:12 Troponin I 0.051 H 0.038 H - Physical Exam Constitutional: no apparent distress Eyes: anicteric sclera Ears, Nose, Mouth, Throat: moist mucous membranes Cardiovascular: regular rate and rhythm, no murmurs Respiratory: clear to auscultate bilat Gastrointestinal: normoactive bowel sounds, no tenderness, no masses Skin: other (erythema and edema of right forearm) Neurologic: AAOx3 Psychiatric: not anxious ICD10 Worksheet Patient Problems: Problems Problem Status Onset Rapid atrial fibrillation Acute Subtherapeutic anticoagulation Acute Chest pain Acute Dyspnea Acute Elevated troponin Acute
[2017-10-09] MEDS ORDERED: LR 1,000 ML IV ONE (13:51)
[2017-10-09] MEDS ORDERED: BUPIVACAINE 0.5% 30 ML SDV ONE (14:17)
[2017-10-09] MEDS ORDERED: POLYMYXIN B SULFATE 500,000 UNIT/10 ML SYR IRR ONE (14:18)
[2017-10-09] MEDS ORDERED: BACITRACIN 50,000 UNITS/10 ML SYR IRR ONE (14:18)
[2017-10-09] MEDS ORDERED: HYDROmorphONE/DILAUDID 1 MG/ML INJ IVP PRN (14:23)
[2017-10-09] MEDS ORDERED: LR 500 ML IV PRN (14:23)
[2017-10-09] MEDS ORDERED: NALOXONE HCL 0.4 MG/ML INJ IVP PRN (14:23)
[2017-10-09] MEDS ORDERED: fentaNYL 100 MCG/2 ML INJ IVP PRN (14:23)
[2017-10-09] MEDS ORDERED: ONDANSETRON 4 MG/2 ML VIAL IVP PRN (14:23)
--- NOTE | 2017-10-09 14:23 | PDANEPAE ---
ANE History of Present Illness here for right arm I and D ANE Past Medical History - Cardiovascular History Hx Hypertension: Yes Hx Arrhythmias: Yes Hx Coronary Artery / Peripheral Vascular Disease: Yes Hx CHF / Valvular Disease: No Hx Palpitations: Yes - Pulmonary History Hx COPD: No Hx Asthma/Reactive Airway Disease: No Hx Recent Upper Respiratory Infection: No Hx Oxygen in Use at Home: No Hx Sleep Apnea: No Sleep Apnea Screening Result - Last Documented: Negative - Endocrine History Hx Diabetes: No Hypothyroid: No Hyperthyroid: No Obesity: moderate - Renal History Hx Renal Disorders: No - Chronic Pain History Chronic Pain: No ANE Review of Systems Review of systems is: negative Review of Systems: - Exercise capacity Exercise capacity: >=4 METS METS (RN): 4 METS ANE Patient History - Allergies Allergies/Adverse Reactions: No Known Allergies Allergy (Verified 10/08/17 11:53) - Home Medications Home medications: home medication list seen and reviewed Home Medications: Ascorbic Acid [Vitamin C 500 mg (*)] 1,000 mg PO DAILY 10/08/17 [Last Taken 04/13] Aspirin [Aspirin 325 mg (*)] 325 mg PO DAILY 10/08/17 [Last Taken 10/04/17] Cephalexin [Keflex (*)] 500 mg PO TID 10/08/17 [Last Taken 10/08/17] Cholecalciferol Vit D3 [Vitamin D3 (*)] 5,000 units PO DAILY 10/08/17 [Last Taken 10/04/17] Furosemide [Lasix 20 MG (*)] 20 mg PO DAILY 10/08/17 [Last Taken 10/08/17] Herbals/Supplements -Info Only 1 ea PO DAILY 10/08/17 [Last Taken Unknown] Magnesium Oxide [Magnesium Oxide 400 mg (*)] 400 mg PO BID 10/08/17 [Last Taken 10/04/17] Metoprolol Succinate Xr [Toprol Xl 50 mg (*)] 50 mg PO BID 10/08/17 [Last Taken 10/08/17] Naproxen 500 mg PO DAILY PRN 10/08/17 [Last Taken Unknown] Omeprazole [Prilosec 20 mg] 20 mg PO DAILY 10/08/17 [Last Taken 10/04/17] Potassium Cl [Klor-Con 20 meq (*)] 20 meq PO DAILY 10/08/17 [Last Taken 10/04/17 ] Rosuvastatin Calcium [Crestor 40mg (*)] 40 mg PO DAILY 10/08/17 [Last Taken 04/13] Spironolactone [Aldactone 25 MG (*)] 25 mg PO DAILY 10/08/17 [Last Taken ] Warfarin Sodium [Coumadin 2.5MG (*)] 2.5 mg PO SUMOTUTHFRSA@16 10/08/17 [Last Taken 10/04/17] Warfarin Sodium [Coumadin 5MG (*)] 5 mg PO WE@16 10/08/17 [Last Taken 10/03/17] diphenhydrAMINE [Benadryl 25 MG (*)] 25 mg PO HS 10/08/17 [Last Taken 10/04/17] predniSONE [Prednisone] 10 mg PO DAILY PRN 10/08/17 [Last Taken Unknown] - NPO status NPO Since - Liquids (Date): 10/09/17 NPO Since - Liquids (Time): 09:00 NPO Since - Solids (Date): 10/09/17 NPO Since - Solids (Time): 09:00 - Smoking Hx Smoking Status: Never smoked - Alcohol Use Alcohol Use: None ANE Labs/Vital Signs - Labs Result Diagrams: 10/09/17 04:30 10/09/17 04:30 - Vital Signs Vital Signs: reviewed preoperatively; see RN documention for details Blood Pressure: 123/62 Heart Rate: 93 Respiratory Rate: 126 O2 Sat (%): 91 Height: 167.64 cm Weight: 72.1 kg ANE Physical Exam - Airway Neck exam: FROM Mallampati Score: Class 1 Mouth exam: dentures - Pulmonary Pulmonary: no respiratory distress - Cardiovascular Cardiovascular: regular rate and rhythym - ASA Status ASA Status: III ANE Anesthesia Plan Anesthesia Plan: general endotracheal anesthesia
[2017-10-09] MEDS ORDERED: PROPOFOL/EMULSION 500 MG/50 ML BOTTLE IV ONE (14:27)
[2017-10-09] MEDS ORDERED: fentaNYL 100 MCG/2 ML INJ ONE (14:37)
--- NOTE | 2017-10-09 14:43 | GCON ---
[f rep st] CONSULTATION INFECTIOUS DISEASE CONSULTATION DATE OF CONSULTATION: 10/09/2017 REFERRING PHYSICIAN: Patrick Davis MD REASON FOR CONSULTATION: Right upper extremity cellulitis with likely abscess formation for further evaluation and opinion. CHIEF COMPLAINT: Right upper extremity pain and swelling. HISTORY OF PRESENT ILLNESS: This is an 81-year-old male with a past medical history signif icant for atrial fibrillation, coronary artery disease, CHF, diabetes mellitus type 2, whose initial symptoms started about a week ago. He states that around the , he had bumped his elbow against a metal door and then subsequently after that, he noticed his right upper extremity was getting red and swollen and painful. He went to [facility] on the for further evaluation. They did an x-r ay there and he was found to have a small avulsion injury. His INR was noted to be 5.5. They put sawyer m empirically on Keflex q.8 hours, and sent him home. For the next several days, his symptoms contin ued to worsen, where he had increasing swelling, redness and pain and now decreased range of motion i nvolving the elbow. He denies any fevers and shaking chills initially or recently. He also had come in with rapid atrial fibrillation. He underwent a WILLIS cardioversion yesterday and has been followed by Cardiology since. No cultures were taken here during admission and also no cultures were taken L [facility], as far as blood cultures. Ultrasound was done of his right upper extremity, and foun d to have a collection measuring 1.9 x 1 x 4.1 cm. This appears suspicious for an abscess. Surgery has been consulted. The patient was changed to vancomycin yesterday. His white blood cell count was elevated at [facility] at 13.3. He was elevated here yesterday at 10.3 and is down to 6.3 pres ently. Infectious Disease is now consulted for further evaluation and plan regarding the above. REVIEW OF SYSTEMS: GENERAL: Denied any fevers or shaking chills. HEAD: No headaches. EYES: No c hange in vision. ENT: No sore throat, difficulty swallowing, ear pain or ear drainage. CARDIOVASCULAR : Rapid heartbeat with palpitations. RESPIRATORY: Denies any shortness of breath, cough, or sputum production. ABDOMEN: No nausea, vomiting, abdominal pain, or diarrhea. GENITOURINARY: No dysuria or hematuria. No flank pain. BACK: No back pain. MUSCULOSKELETAL: No other areas of muscle or joint pains. SKIN: No other areas of rashes or open wounds. Rest of a 10-point review of systems is esse ntially negative, as listed above. PAST MEDICAL HISTORY: Significant for CHF, atrial fibrillation, coronary artery disease, dyslipidemi a, hypertension, hypothyroidism, diabetes mellitus type 2. PAST SURGICAL HISTORY: Significant for a stent. ALLERGIES: No known drug allergies. SOCIAL HISTORY: He is a nonsmoker. He does not drink alcohol. Lives with his . He has no pets . He traveled to [place] last fall. FAMILY HISTORY: Father age 42 who had high blood pressure . His mother lived to the age of 83. MEDICATIONS: As per MAR. PHYSICAL EXAMINATION: VITAL SIGNS: Temperature current is 37.4, pulse is 87, respiratory rate is 16 , blood pressure 175/70, saturation 93% on 2 L O2 via nasal cannula. GENERAL: Patient is resting in bed in no acute respiratory distress. Awake, alert, and oriented x3. HEENT. Head is normocephalic, atraumatic. He has conjunctival injection bilaterally. Oropharynx is clear. He has upper dentures . No obvious thrush. CARDIOVASCULAR: S1, S2. Irregular rhythm. Stable rate. RESPIRATORY: Coarse breath sounds at the bases bilaterally. ABDOMEN: Positive bowel sounds in all quadrants. Soft, nont hilaria, nondistended. No obvious organomegaly appreciated. LOWER EXTREMITIES: No lower extremity christopher a. MUSCULOSKELETAL: No obvious joint effusions involving the . No pain upon palpation. Pe rtinent findings involving musculoskeletal and skin include the right upper extremity where he has ce llulitis involving the right upper extremity from the wrist to the arm. The area is swollen. There is induration more predominant near the proximal forearm near the elbow. There is some mild boggines s over the olecranon region. He has limited range of motion. He has had limited flexion but is able to mostly extend. Skin is warm to touch and tender on palpation. LABORATORY STUDIES: White blood cell count of 6.3, hemoglobin 14.2, platelets are 184, is 71%. INR is 1.4. Sodium 130, potassium 3.5, chloride is 99, bicarb 10/16/2018, BUN is 17, creatini ne 0.8. LFTs are within the normal range. No microbiology done. IMAGING STUDIES: Chest x-ray shows some bibasilar interstitial changes that could be edema or pneumo nitis. WILLIS without any obvious thrombus noted. Ultrasound of the upper extremity shows a complex fl uid collection measuring 1.9 x 1 x 4.1 cm. ASSESSMENT: Right upper extremity cellulitis with a complex fluid collection just distal to the olec ranon region. Hematoma versus abscess. PLAN: At this point in time, I agree with vancomycin empirically for now. The patient has already h ad several doses of Keflex prior to his hospitalization and vancomycin now. Blood cultures likely of limited yield at this point. Surgery has been consulted to evaluate and drain the fluid collection in the forearm, so would appreciate some cultures to see if this helps us in more directive antimicro bial care. Ultrasound did not clearly define if there was a joint effusion. Would check an elbow x- ray to re-evaluate the site. He does have a known avulsion injury there. Continue to elevate the ar m. Plan of care was discussed with the patient in detail. Care according with the hospitalist team dennys alonzo and care was coordinated with his RN. Thank you very much for the opportunity to care for your patient in consultation. /[id number]/MODL
[2017-10-09] MEDS ORDERED: SUGAMMADEX SODIUM 200 MG/2 ML VIAL IVP ONE ×2 (15:19→15:21)
--- NOTE | 2017-10-09 15:33 | POSTOPPROG ---
Post Op Note Date of Operation: 10/09/17 Surgeon: Royer Rouse Pre-op Diagnosis: abscess right dorsal forearm Post-op Diagnosis: same, abscess extending into elbow bursa Indication: same Procedure: drainage, irrigation of infected bursa at elbo, right Findings: same Inf/Abcess present in the surg proc area at time of surgery?: Yes Depth: Deep Incisional (Fascial) EBL: Minimal
--- NOTE | 2017-10-09 15:36 | POSTANESTH ---
Post Anesthetic Evaluation Cardiovascular Status: Normal, Stable Respiratory Status: Normal, Stable Level of Consciousness/Mental Status: Can Participate in Eval Pain Control: Adequate, Prn Tx Ordered Nausea/Vomiting Control: Adequate, Prn Tx Ordered
--- NOTE | 2017-10-09 15:54 | GOP ---
[f rep st] OPERATIVE REPORT DATE OF OPERATION: SURGEON: Royer Rouse MD PREOPERATIVE DIAGNOSIS: Abscess, right dorsal forearm. POSTOPERATIVE DIAGNOSIS: Abscess extending into the right elbow bursa. PROCEDURE PERFORMED: FINDINGS: INDICATIONS: 81-year-old male with severely erythematous and painful right forearm, a fluctuant area on the dorsum near the olecranon process documented with ultrasound to be fluid. DESCRIPTION OF PROCEDURE: The patient had general anesthetic. The arm was scrubbed with Betadine, d raped in the usual sterile fashion. Incision was made over the fluctuant area and pus obtained. It was cultured. The incision was extended cephalad because digital exploration showed it going proxima l to the elbow joint and slightly over the forearm into the upper arm itself. This was not open to t he full cephalad extent of the infected area. However, it allowed full access to that area. This wa s then copiously irrigated with several liters of saline. A 1/4 inch [place] drain was advanced into the most cephalad aspect of the wound and allowed to hang out the more open aspect distally. It was covered with multiple 4 x 4s, wrapped into Kerlix and several Minh wraps. The patient tolerated the procedure well. PROCEDURE PERFORMED: Drainage right elbow bursa abscess. /[id number]/MODL
--- NOTE | 2017-10-09 16:13 | ASMTCMCOM ---
CM Note CM Note Notes: 10/09/2017 Case Management Note Reviewed chart. Pt currently on vanco for infection in right arm. There are no other case management d/c needs identified at this time. Pt has family support and was independent in ADL's prior to admission. PT is recommending home. Case Management d/c poc: home possibly with IV antibiotics. Case Management will need to send referral for antibiotics if needed at d/c. Case Management to follow. Date Signed: 10/09/2017 04:12 PM Electronically Signed By:Edith Callejas RN
[2017-10-09] MEDS: MAGNESIUM OXIDE 400 MG TAB PO SCH ×2 (17:08→20:02)
[2017-10-09] MEDS: ASCORBIC ACID 500 MG TAB PO SCH (17:08)
[2017-10-09] MEDS: CHOLECALCIFEROL VIT D3 2,000 UNITS TAB/CAP PO SCH (17:08)
[2017-10-09] MEDS ORDERED: FUROSEMIDE 40 MG/4 ML VIAL IVP ONE (17:08)
--- NOTE | 2017-10-09 17:16 | HOSPPROG ---
Hospitalist Progress Note Assessment/Plan: Assessment: 81-year-old male presents with paroxysmal atrial fibrillation and acute rapid ventricular response provoked by RUE cellulitis and septic bursitis Plan: 1. Paroxysmal atrial fibrillation. Acute rapid ventricular response, likely provoked by patient's cellulitis and bursitis and resulting in diastolic congestive heart failure exacerbation as well as initial acute hypotension -s/p DCCV/WILLIS (no clot noted) -cont on lovenox bridging w/ home dose of coumadin -cont on bblocker -monitor daily INR 2. Cellulitis, abscess, and septic bursitis. Right upper extremity, US w/ abscess 2x4 cm adjacent to bursa -d/w Dr. Martinez, he reports very close proximity to olecranon bursa and suspects this was from septic bursitis, does not recommend further joint eval at this time given good soft-tissue wash-out -vickey drain remains in place, Dr. Martinez to assess output tomorrow AM and possibly remove -D#2 Vanco, failed outpt keflex -fluid Cx sent, results pending -d/w Dr. Valle, consultation appreciated for abx selection/duration 3. Hyponatremia. Acute, improving, cont to monitor 4. Acute diastolic congestive heart failure exacerbation. Secondary to AFib RVR, s/p DCCV, given one dose IV lasix 40mg post-op today -restart home PO lasix/aldactone/K tomorrow AM -if patient still hypoxic or symptomatic, consider ongoing IV lasix 5. Coronary artery disease. Chronic, elevated troponin most likely secondary to myocardial strain in the setting of AFib RVR and diastolic CHF -continue aspirin, bblocker, statin 6. Hypotension. 2/2 Afib RVR, resolved w/ emergent DCCV 7. DM2. A1c reportedly 10%, patient not on any Rx prior to presentation -started lantus 5u w/ good response, also on ISS Diet. Regular Prophylaxis. High risk patient, on Lovenox 80 bid Code. Full per patient, his is MD POA Disposition. Anticipated discharge uncertain this time, ongoing IV Abx, s/p OR today Subjective: ongoing pain and limited ROM RUE Objective: Vital Signs Temp Pulse Resp BP Pulse Ox 37.7 C 87 12 126/68 H 94 10/09/17 16:37 10/09/17 16:37 10/09/17 16:37 02/13/18 16:37 10/09/17 16:37 Laboratory Results 10/09/17 04:30 10/09/17 04:30 10/08/17 10/09/17 10/10/17 05:59 05:59 05:59 Intake Total 850 700 Output Total 5 Balance 850 695 PT 17.4 SEC (12.0-15.0) H 10/09/17 04:30 INR 1.41 (0.83-1.16) H 10/09/17 04:30 - Physical Exam Constitutional: no apparent distress, uncomfortable, No not in pain (mild rUE), No chronically ill appearing Cardiovascular: No systolic murmur, No irregularly irregular, No tachycardia, No edema Respiratory: inspiratory crackles (bilat bases), No reduced air movement, No expiratory wheeze, No bronchial breath sounds, No respiratory distress Gastrointestinal: normoactive bowel sounds, soft, non-tender abdomen, no palpable masses, No distension Skin: other (soft tissue edema, fluctuance, and induration RUE from wrist to mid prox upper arm, blanchable) Musculoskeletal: other (ROM limited to 160 deg extension and 90 deg flexion RUE by pain, olecranon bursa fluctuant and tender) Neurologic: AAOx3, sensation intact bilaterally Psychiatric: interacting appropriately, not anxious, not encephalopathic, thought process linear ICD10 Worksheet Patient Problems: Problems Problem Status Onset Rapid atrial fibrillation Acute Subtherapeutic anticoagulation Acute Chest pain Acute Dyspnea Acute Elevated troponin Acute
[2017-10-09] MEDS: POTASSIUM CL 20 MEQ TAB PO SCH (18:51)
[2017-10-09] MEDS: WARFARIN SODIUM 2.5 MG TAB PO SCH (18:51)
[2017-10-09] MEDS: PANTOPRAZOLE SODIUM 40 MG TAB PO SCH (18:51)
[2017-10-09] MEDS: ROSUVASTATIN CALCIUM 40 MG TAB PO SCH (18:51)
[2017-10-09] MEDS: ASPIRIN 325 MG TAB PO SCH (18:51)
[2017-10-09] MEDS: diphenhydrAMINE 25 MG CAP PO SCH (20:02)
[2017-10-09] MEDS: INSULIN GLARGINE 100 UNITS/ML UNIT SC SCH (21:41)
[2017-10-10 05:24] LABS: PLATELET COUNT 188 10^3/uL (150-400)
[2017-10-10] MEDS: ENOXAPARIN 80 MG/0.8 ML SYR SC SCH ×2 (05:25→17:21)
[2017-10-10 05:43] LABS: INR 1.82 (0.83-1.16); PROTIME(PATIENT) 21.2 SEC (12.0-15.0)
[2017-10-10] MEDS: VANCOMYCIN 1.25 GM in NS 250 ML IV SCH ×2 (06:36→17:36)
--- NOTE | 2017-10-10 06:38 | SOAPPROG ---
SOAP Progress Note Assessment/Plan: Assessment: gram positive cocci on gram stain. will dc drain tomomrrow, institute daily dressing changes. cont appropriate ab's for gpc's Plan: 10/10/17 06:37 Subjective: still painful, but notes less swelling Objective: 1 day s/p i+d of infected r elbow bursa- no purulence. drain advanced, irrigated , re dressed. Vital Signs Temp Pulse Resp BP Pulse Ox 37.5 C 80 12 108/55 L 95 10/10/17 03:55 10/10/17 03:55 10/10/17 03:55 10/10/17 03:55 10/10/17 03:55 Microbiology 10/09/17 15:30 Gram Stain - Final Arm - Aspirate 10/09/17 15:30 Gram Stain - Final Arm - Eswab Laboratory Results 10/10/17 05:16 10/10/17 05:16 10/09/17 10/10/17 10/11/17 05:59 05:59 05:59 Intake Total 850 1320 Output Total 5 Balance 850 1315 PT 21.2 SEC (12.0-15.0) H 10/10/17 05:16 INR 1.82 (0.83-1.16) H 10/10/17 05:16 ICD10 Worksheet Patient Problems: Problems Problem Status Onset Chest pain Acute Dyspnea Acute Elevated troponin Acute Rapid atrial fibrillation Acute Subtherapeutic anticoagulation Acute
[2017-10-10] MEDS ORDERED: FUROSEMIDE 20 MG TAB PO SCH (09:00)
[2017-10-10] MEDS: INSULIN REGULAR HUMAN 100 UNIT/ML UNIT SC SCH ×4 (09:22→21:48)
[2017-10-10] MEDS: ASCORBIC ACID 500 MG TAB PO SCH (09:24)
[2017-10-10] MEDS: ASPIRIN 325 MG TAB PO SCH (09:25)
[2017-10-10] MEDS: CHOLECALCIFEROL VIT D3 2,000 UNITS TAB/CAP PO SCH (09:25)
[2017-10-10] MEDS: METOPROLOL SUCCINATE XR 50 MG TAB PO SCH ×2 (09:26→21:10)
[2017-10-10] MEDS: MAGNESIUM OXIDE 400 MG TAB PO SCH ×2 (09:26→21:09)
[2017-10-10] MEDS: PANTOPRAZOLE SODIUM 40 MG TAB PO SCH (09:26)
[2017-10-10] MEDS: SPIRONOLACTONE 25 MG TAB PO SCH (09:26)
[2017-10-10] MEDS: POTASSIUM CL 20 MEQ TAB PO SCH (09:26)
[2017-10-10] MEDS: ROSUVASTATIN CALCIUM 40 MG TAB PO SCH (09:27)
--- NOTE | 2017-10-10 11:36 | PCMIDPN ---
Assessment/Plan: Assessment/Plan: * Right upper extremity cellulitis/abscess/septic bursitis status post incision and drainage: Cultures with GPC on gram stain and early growth suggestive of Staphylococcus aureus. Persistent cellulitis present which likely will begin recede now post incision and drainage. Await susceptibility profile on probable Staphylococcus aureus. PBP should be available later today. Continue vancomycin in interim pending susceptibility profile. 10/10/17 11:26 Subjective: Patient status post incision and drainage of right upper extremity abscess which extended into bursa. Arm feels improved today. Objective: Vital Signs Temp Pulse Resp BP Pulse Ox 37.0 C 86 14 118/59 L 97 10/10/17 11:05 10/10/17 11:05 10/10/17 11:05 10/10/17 11:05 10/10/17 11:05 Microbiology 10/09/17 15:30 Gram Stain - Final Arm - Aspirate 10/09/17 15:30 Gram Stain - Final Arm - Eswab Laboratory Results 10/10/17 05:16 10/10/17 05:16 10/09/17 10/10/17 10/11/17 05:59 05:59 05:59 Intake Total 850 1320 Output Total 5 Balance 850 1315 Vancomycin # 2 Operative Gram stain with GPCs present Laboratory Tests 10/10/17 05:16 Vancomycin Trough 13.5 - Physical Exam General Appearance: alert, no apparent distress EENT: No scleral icterus, No conjunctival petechiae Respiratory: lungs clear, No respiratory distress Cardiac/Chest: regular rate, rhythm Extremities: inflammation (Right upper extremity with [place] drain in place within incision; erythema surrounding incision extending into forearm, upper arm , and over bursa with bogginess present over bursa; mild warmth and tenderness to palpation) Abdomen: non-tender, No distended Skin: No embolic lesions ICD10 Worksheet Patient Problems: Problems Problem Status Onset Chest pain Acute Dyspnea Acute Elevated troponin Acute Rapid atrial fibrillation Acute Subtherapeutic anticoagulation Acute
--- NOTE | 2017-10-10 15:07 | ASMTCMCOM ---
CM Note CM Note Notes: 10/10/2017 Case Management Note Reviewed pt in rounds this morning. PT is recommending home. D/C antibiotic needs remain unclear. Case Management to follow for d/c antibiotic needs. Case management d/c poc: independent with possible d/c antibiotics. Date Signed: 10/10/2017 03:06 PM Electronically Signed By:Edith Callejas RN
[2017-10-10] MEDS ORDERED: WARFARIN SODIUM 5 MG TAB PO SCH (16:00)
[2017-10-10] MEDS ORDERED: WARFARIN SODIUM 2.5 MG TAB PO ONE (16:00)
--- NOTE | 2017-10-10 16:24 | PDCARPN ---
Cardiology Progress Note Assessment/Plan: Paroxysmal Atrial Fibrillation: Maintaining sinus rhythm following cardioversion on 10/08. - Continue systemic anticoagulation. Being covered with LMWH until INR returns to the therapeutic range. Coronary Artery Disease: No symptoms of angina. He had a normal nuclear stress test at a [facility] in early 2017. ([facility] records placed on the physical chart for information purposes.) Also had an echocardiogram demonstrating normal left ventricular systolic function and no hemodynamically significant valvular heart disease. - Continue secondary prevention regimen. Acute Diastolic CHF: Dyspnea significantly improved following cardioversion. Not grossly overloaded. - Continue outpatient dose of furosemide. Cellulitis: s/p surgical I&D yesterday. - Now on IV vancomycin. Disposition: Home when infectious disease problem resolved. Should follow up with Gold Stringer MD at [facility] [place]. Will sign off. 10/10/17 16:25 Subjective: Arm feels better. No CV symptoms. Reviewed/Discussed With: family Objective: Vital Signs (8 Hrs) Temp Pulse Resp BP Pulse Ox 10/10/17 11:05 37.0 C 86 14 118/59 L 97 10/10/17 10:45 85 L 10/10/17 10:30 78 L Intake/Output (24 Hrs) 10/09/17 10/10/17 10/11/17 05:59 05:59 05:59 Intake Total 850 1320 Output Total 5 Balance 850 1315 Intake: Oral (ml) 600 620 IV Intake (ml) 700 IV Infused (ml) 250 Vancomycin 1.25 gm In Ns 250 250 ml @ 166.67 mls/hr IV Q12H [facility] Rx#:[id number] Output: Estimated Blood Loss (ml) 5 Other: Weight 72.1 kg 73 kg Number of Voids Toilet 1 2 Number of Stools Toilet 1 1 Result Diagrams: 10/10/17 05:16 10/10/17 05:16 Cardiac Labs: Cardiac Lab Results (72 Hrs) 10/09/17 10/08/17 04:30 20:12 Troponin I 0.051 H 0.038 H - Physical Exam Constitutional: no apparent distress Eyes: anicteric sclera Ears, Nose, Mouth, Throat: moist mucous membranes Cardiovascular: regular rate and rhythm, no murmurs Respiratory: clear to auscultate bilat Gastrointestinal: normoactive bowel sounds, no tenderness, no masses Skin: no edema Neurologic: AAOx3 Psychiatric: not anxious ICD10 Worksheet Patient Problems: Problems Problem Status Onset Rapid atrial fibrillation Acute Subtherapeutic anticoagulation Acute Chest pain Acute Dyspnea Acute Elevated troponin Acute
[2017-10-10] MEDS: metFORMIN HCL 500 MG TAB PO SCH (17:20)
--- NOTE | 2017-10-10 17:44 | HOSPPROG ---
Hospitalist Progress Note Assessment/Plan: * Afib - now NSR -s/p WILLIS/cardioversion -metoprolol -lovenox until INR therapeutic on warfarin * Right elbow septic bursitis s/p I&D -remove drain soon -IV Vanco per ID * Acute on chronic diastolic CHF -s/p IV lasix * DM II - new diagnosis -start metformin * CAD/stents -recent outpatient stress test negative Subjective: Elbow feels much better Objective: Vital Signs Temp Pulse Resp BP Pulse Ox 37.0 C 86 14 118/59 L 97 10/10/17 11:05 10/10/17 11:05 10/10/17 11:05 10/10/17 11:05 10/10/17 11:05 Microbiology 10/09/17 15:30 Gram Stain - Final Arm - Aspirate 10/09/17 15:30 Gram Stain - Final Arm - Eswab Laboratory Results 10/10/17 05:16 10/10/17 05:16 10/09/17 10/10/17 10/11/17 05:59 05:59 05:59 Intake Total 850 1320 Output Total 5 Balance 850 1315 PT 21.2 SEC (12.0-15.0) H 10/10/17 05:16 INR 1.82 (0.83-1.16) H 10/10/17 05:16 CXR viewed, my personal interpretation is - pulmonary edema UE US - forearm abscess - Physical Exam Constitutional: no apparent distress, appears nourished, not in pain Cardiovascular: regular rate and rhythym, no murmur, rub, or gallop Respiratory: no respiratory distress, no rales or rhonchi, clear to auscultation Gastrointestinal: normoactive bowel sounds, soft, non-tender abdomen, no palpable masses Skin: no rashes or abrasions, no fluctuance, no induration Neurologic: AAOx3, sensation intact bilaterally Psychiatric: interacting appropriately, not anxious, not encephalopathic, thought process linear ICD10 Worksheet Patient Problems: Problems Problem Status Onset Chest pain Acute Dyspnea Acute Elevated troponin Acute Rapid atrial fibrillation Acute Subtherapeutic anticoagulation Acute
[2017-10-10] MEDS: diphenhydrAMINE 25 MG CAP PO SCH (21:09)
[2017-10-11 04:43] LABS: PLATELET COUNT 183 10^3/uL (150-400)
[2017-10-11 04:49] LABS: INR 1.77 (0.83-1.16); PROTIME(PATIENT) 20.7 SEC (12.0-15.0)
[2017-10-11] MEDS: VANCOMYCIN 1.25 GM in NS 250 ML IV SCH (05:35)
[2017-10-11] MEDS: ENOXAPARIN 80 MG/0.8 ML SYR SC SCH (05:35)
[2017-10-11 07:35] VITALS: RESP 12
[2017-10-11] MEDS: metFORMIN HCL 500 MG TAB PO SCH (10:00)
[2017-10-11] MEDS: FUROSEMIDE 20 MG/2 ML VIAL IVP SCH ×2 (10:00→15:21)
[2017-10-11] MEDS: POTASSIUM CL 20 MEQ TAB PO SCH (10:00)
[2017-10-11] MEDS: CHOLECALCIFEROL VIT D3 2,000 UNITS TAB/CAP PO SCH (10:01)
[2017-10-11] MEDS: PANTOPRAZOLE SODIUM 40 MG TAB PO SCH (10:01)
[2017-10-11] MEDS: ASCORBIC ACID 500 MG TAB PO SCH (10:01)
[2017-10-11] MEDS: SPIRONOLACTONE 25 MG TAB PO SCH (10:01)
[2017-10-11] MEDS: ROSUVASTATIN CALCIUM 40 MG TAB PO SCH (10:01)
[2017-10-11] MEDS: ASPIRIN 325 MG TAB PO SCH (10:02)
[2017-10-11] MEDS: METOPROLOL SUCCINATE XR 50 MG TAB PO SCH (10:02)
[2017-10-11] MEDS: MAGNESIUM OXIDE 400 MG TAB PO SCH (10:02)
[2017-10-11] MEDS: INSULIN REGULAR HUMAN 100 UNIT/ML UNIT SC SCH ×2 (10:02→12:56)
[2017-10-11 11:15] VITALS: BP 125/61; PULSE 90; TEMP 99.8; O2SAT 88
--- NOTE | 2017-10-11 14:08 | ASMTCMCOM ---
CM Note CM Note Notes: Pts case discussed in morning rounds. Pt will most likely switch from ivabx to orals. Pt may have an o2 need. Otherwise, the plan remains the same. Pt will d/c independent w/ supportive . CM available for changes. Plan: Independent Date Signed: 10/11/2017 02:07 PM Electronically Signed By:MYNOR Chavez
[2017-10-11] MEDS ORDERED: WARFARIN SODIUM 5 MG TAB PO ONE (16:00)
--- NOTE | 2017-10-11 17:02 | SOAPPROG ---
SOAP Progress Note Assessment/Plan: Assessment/Plan: Doing well post drainage of abscess Afebrile discussed with ID Dr Knight feels pt can leave on oral abx Rt arm smaller less edematous and erythematous 2 inch incision irrigated with sterile water with removal of vickey drain. No purulence, healthy granulation tissue Doing well Bid dressing change and daily washout with soap and water in shower. F/u with Dr Sykes in 1 week 10/11/17 16:58 Objective: Vital Signs Temp Pulse Resp BP Pulse Ox 37.7 C 90 12 125/61 H 88 L 10/11/17 11:13 10/11/17 11:13 10/11/17 11:13 10/11/17 11:13 10/11/17 11:13 Microbiology 10/09/17 15:30 Gram Stain - Final Arm - Aspirate 10/09/17 15:30 Gram Stain - Final Arm - Eswab Laboratory Results 10/11/17 03:51 10/11/17 03:51 10/10/17 10/11/17 10/12/17 05:59 05:59 05:59 Intake Total 1320 1150 Output Total 5 850 Balance 1315 300 PT 20.7 SEC (12.0-15.0) H 10/11/17 03:51 INR 1.77 (0.83-1.16) H 10/11/17 03:51 ICD10 Worksheet Patient Problems: Problems Problem Status Onset Chest pain Acute Dyspnea Acute Elevated troponin Acute Rapid atrial fibrillation Acute Subtherapeutic anticoagulation Acute
--- NOTE | 2017-10-11 17:28 | PCMIDPN ---
Assessment/Plan: Assessment: Right upper extremity abscess secondary to MSSA involving the olecranon bursa. Status post incision and drainage. Arm is significantly improved. Less swollen. Less red. Isolate is sensitive to beta lactams. Patient can at this point switch over to oral Keflex for completion of treatment. He will follow up in office for Infectious Disease in 7 days. Follow-up with surgery also in the next 7 days. Plan: 1. Transition antibiotics from IV vancomycin to oral Keflex 500 mg p.o. Q 6 hours. Total duration of 14 days treatment. 2. Follow up in Infectious Disease Clinic in 1 week time. 10/11/17 18:53 Subjective: Patient is doing much better. He notes that his right arm is significantly improved as far as pain and swelling. Also less red. Patient denies any fevers or chills. States that he is able to make movements with his right arm today that he was unable to just 2 days ago. Objective: Vancomycin # 3 Vital Signs Temp Pulse Resp BP Pulse Ox 37.7 C 90 12 125/61 H 88 L 10/11/17 11:13 10/11/17 11:13 10/11/17 11:13 10/11/17 11:13 10/11/17 11:13 Microbiology 10/09/17 15:30 Gram Stain - Final Arm - Aspirate 10/09/17 15:30 Gram Stain - Final Arm - Eswab Laboratory Results 10/11/17 03:51 10/11/17 03:51 10/10/17 10/11/17 10/12/17 05:59 05:59 05:59 Intake Total 1320 1150 Output Total 5 850 Balance 1315 300 - Physical Exam General Appearance: WD/WN, alert, no apparent distress, non-toxic Respiratory: lungs clear, normal breath sounds, No respiratory distress Cardiac/Chest: regular rate, rhythm, No tachycardia Extremities: inflammation (Less), swelling (Less today), erythema (Less today), No non-tender, No normal inspection Skin: normal color, warm/dry, No rash Neuro/Psych: alert, normal mood/affect, oriented x 3 ICD10 Worksheet Patient Problems: Problems Problem Status Onset Chest pain Acute Dyspnea Acute Elevated troponin Acute Rapid atrial fibrillation Acute Subtherapeutic anticoagulation Acute
--- NOTE | 2017-10-11 19:10 | GDS ---
[f rep st] DISCHARGE SUMMARY ACUTE DIAGNOSES: 1. Atrial fibrillation, converted with cardioversion, and now in normal sinus rhythm. 2. Right elbow septic bursitis, status post incision and drainage. 3. Acute on chronic diastolic congestive heart failure. 4. Diabetes mellitus, new diagnosis. The patient was started on metformin at discharge. 5. Coronary artery disease, status post stents remotely. No chest pain or cardiac ischemia during t his hospitalization. 6. Anticoagulation, on warfarin for atrial fibrillation. CONSULTATIONS: Cardiology, and Surgery, and Infectious Disease. PROCEDURE: 1. On 10/09, drainage of a right elbow bursa abscess with placement of a Brea drain by Dr. Royer porter. 2. Cardioversion and WILLIS performed by Dr. Moi Lemus on 10/08. The patient was successfully car dioverted to normal sinus rhythm. HOSPITAL COURSE: This is an 81-year-old gentleman who presented with right elbow inflammation. He w as noted to be significantly short of breath and becoming severely dyspneic. He also had increasing extremity edema. He was noted to have paroxysmal atrial fibrillation with RVR and a cellulitis of hi s right upper extremity. There is some evidence of decompensation of diastolic congestive heart fail ure. A WILLIS was performed and confirmed the absence of clot, and he was cardioverted successfully to normal sinus rhythm and then stabilized. An I and D of the right elbow bursa was done, showing purul ent material with cultures growing MSSA. He initially received vancomycin, and was transitioned to K eflex successfully. The Haydee drain was removed at the time of discharge. The patient was also noted to have elevated glucose and hemoglobin A1c of 10, was started on metformi n during this hospitalization. The diabetes mellitus is a new diagnosis for this gentleman. DISCHARGE MEDICATIONS: NEW MEDICATION: Metformin 500 mg p.o. b.i.d. CONTINUED MEDICATION: Keflex 500 mg p.o. t.i.d. x10 days for his right elbow infection. OTHER CONTINUED MEDICATIONS: Coumadin 2.5 mg Sunday, Sunday, Sunday, , Sunday, Sunday, an d Coumadin 5 mg on Sunday, Benadryl 25 mg h.s., naproxen 500 mg daily p.r.n., Prilosec 20 mg daily , Klor-Con 20 mEq daily, ascorbic acid 1,000 mg daily, ASA 325 mg daily, vitamin D3 5,000 internation al units daily, magnesium oxide 400 mg b.i.d., Aldactone 25 mg daily, rosuvastatin 40 mg daily, Lasix 20 mg daily, metoprolol XL 50 mg twice daily. PLAN: The Haydee drain has been removed, and he will follow up with Dr. Royer Rouse in 3-5 days for wound care. To see Dr. Gold Stringer in care of his paroxysmal atrial fibrillation. He sees a Dr. Pizarro in [place], and he has been referred here for management of his diabetes mellitus. It was noted the gentleman was slightly hypoxic at the time of discharge, although a recheck of his S aO2 showed that he was 88% on room air and with exertion. This was acceptable, and the patient was n ot discharged on oxygen. TIME: This discharge required 50 minutes, greater than 50% to career placement services counselor and coordinate care. /[id number]/MODL
== END 2017-10-11 17:23 | disposition home or self-care (01) | DRG 557 ==
LOC: F2W 18:40
PROVIDERS: ADMIT Internal Medicine; ATTEND Internal Medicine
PROC: 5A2204Z Restoration of Cardiac Rhythm, Single (ICD-10-PCS; principal; 2017-10-08)
PROC: B245ZZ4 Ultrasonography of Left Heart, Transesophageal (ICD-10-PCS; principal; 2017-10-08)
PROC: 0R9 Upper Joints, Drainage (ICD-10-PCS; 2017-10-09)
DX: M71.521 Other bursitis, not elsewhere classified, right elbow (principal); I11.0 Hypertensive heart disease with heart failure; I50.33 Acute on chronic diastolic (congestive) heart failure; L03.113 Cellulitis of right upper limb; I48.0 Paroxysmal atrial fibrillation; B95.7 Other staphylococcus as the cause of diseases classified elsewhere; E11.9 Type 2 diabetes mellitus without complications; I25.10 Atherosclerotic heart disease of native coronary artery without angina pectoris; E78.5 Hyperlipidemia, unspecified; Z79.84 Long term (current) use of oral hypoglycemic drugs; Z79.01 Long term (current) use of anticoagulants; Z95.5 Presence of coronary angioplasty implant and graft
CPT/HCPCS: 96365; 97116-GP; 97161-GP; 97165-GO; 97530-GO; 97535-GO; G8978-GP-CI; G8979-GP-CI; G8980-GP-CI; G8987-GO-CJ; G8988-GO-CI; J1650; J1815; J1940; J2704; J3010; J3370

== ENCOUNTER 2017-10-18 10:41 | Emergency (ER) | payer OTHER, BC ==
[2017-10-18 10:49] VITALS: TEMP 98.1
--- NOTE | 2017-10-18 11:02 | EDPHY ---
H & P Stated Complaint: r elbow cellulitis Time Seen by Provider: 10/18/17 11:00 HPI/ROS: CHIEF COMPLAINT: Cellulitis recheck HISTORY OF PRESENT ILLNESS: The patient is referred to the emergency department by Cardiology for cellulitis recheck. He was recently admitted to the hospital for AFib and a elbow bursitis which was I&D'd by Dr. Royer Rouse. The patient grew out MSSA and is currently on Keflex. The patient saw Dr. Royer Rouse in the office yesterday. He currently has packing in place. He denies any additional acute complaints. REVIEW OF SYSTEMS: A comprehensive 10 point review of systems is otherwise negative aside from elements mentioned in the history of present illness. Source: Patient Exam Limitations: No limitations - Personal History Current Tetanus/Diphtheria Vaccine: Yes - Medical/Surgical History Hx Asthma: No Hx Chronic Respiratory Disease: No Hx Diabetes: No Hx Cardiac Disease: Yes Hx Renal Disease: No Hx Cirrhosis: No Hx Alcoholism: No Hx HIV/AIDS: No Hx Splenectomy or Spleen Trauma: No Other PMH: afib. cardiac stent. hyperlipidemia - Social History Smoking Status: Never smoked - Physical Exam Exam: General Appearance: Alert, no distress Eyes: Pupils equal and round no pallor or injection ENT, Mouth: Mucous membranes moist Respiratory: There are no retractions, lungs are clear to auscultation Cardiovascular: Regular rate and rhythm Gastrointestinal: Abdomen is soft and nontender, no masses, bowel sounds normal Neurological: A&O, normal motor function, normal sensory exam, normal cranial nerves Skin: Mild erythema surrounding prior bursal incision, no fluctuance or discharge Musculoskeletal: Neck is supple nontender Extremities: symmetrical, full range of motion, no clinical evidence of septic arthritis Constitutional: Initial Vital Signs Temperature (C) 36.7 C 10/18/17 10:46 Heart Rate 89 10/18/17 10:46 Respiratory Rate 18 10/18/17 10:46 Blood Pressure 136/73 H 10/18/17 10:46 O2 Sat (%) 97 10/18/17 10:46 O2 Delivery Mode Room Air Allergies/Adverse Reactions: No Known Allergies Allergy (Verified 10/18/17 10:43) Home Medications: Medication Instructions Recorded Ascorbic Acid [Vitamin C 500 mg 1,000 mg PO DAILY 10/08/17 (*)] Aspirin [Aspirin 325 mg (*)] 325 mg PO DAILY 10/08/17 Cholecalciferol Vit D3 [Vitamin D3 5,000 units PO DAILY 10/08/17 (*)] Furosemide [Lasix 20 MG (*)] 20 mg PO DAILY 10/08/17 Herbals/Supplements -Info Only 1 ea PO DAILY 10/08/17 Magnesium Oxide [Magnesium Oxide 400 mg PO BID 10/08/17 400 mg (*)] Metoprolol Succinate Xr [Toprol Xl 50 mg PO BID 10/08/17 50 mg (*)] Naproxen 500 mg PO DAILY PRN 10/08/17 Omeprazole [Prilosec 20 mg] 20 mg PO DAILY 10/08/17 Potassium Cl [Klor-Con 20 meq (*)] 20 meq PO DAILY 10/08/17 Rosuvastatin Calcium [Crestor 40mg 40 mg PO DAILY 10/08/17 (*)] Spironolactone [Aldactone 25 MG 25 mg PO DAILY 10/08/17 (*)] Warfarin Sodium [Coumadin 2.5MG 2.5 mg PO SUMOTUTHFRSA@16 10/08/17 (*)] Warfarin Sodium [Coumadin 5MG (*)] 5 mg PO WE@16 10/08/17 diphenhydrAMINE [Benadryl 25 MG 25 mg PO HS 10/08/17 (*)] predniSONE [Prednisone] 10 mg PO DAILY PRN 10/08/17 Cephalexin [Keflex (*)] 500 mg PO TID #30 cap 10/11/17 metFORMIN HCL [Glucophage 500 mg 500 mg PO BIDMEAL #60 tab 10/11/17 (*)] Medical Decision Making ED Course/Re-evaluation: The patient presents to the ED with symptoms of mild cellulitis currently on antibiotic therapy without evidence of septic arthritis or a recurrent bursitis. At this point time I do feel the patient can continue to work with his general surgeon as scheduled. He is advised to return to the ED for markedly worsening redness, increased swelling, discharge, fever or other concerns. Departure - Departure Disposition: Home, Routine, Self-Care Clinical Impression: Cellulitis Qualifiers: Site of cellulitis of extremity: upper extremity Laterality: right Condition: Good Instructions: Cellulitis (DC) Additional Instructions: 1. Please continue your antibiotics as scheduled. 2. Please follow up with Dr. aGrcia as scheduled. 3. Please return to the ED for markedly increased redness, fever, swelling, discharge or other concerns. Referrals: KELLEE RUFFIN [Primary Care Provider] - As per Instructions Royer Rouse MD [Medical Doctor] - As per Instructions
[2017-10-18 12:23] VITALS: BP 109/60; PULSE 79; RESP 16; O2SAT 96
== END 2017-10-18 12:23 | disposition home or self-care (01) ==
DX: L03.113 Cellulitis of right upper limb (principal); Z95.5 Presence of coronary angioplasty implant and graft; Z79.82 Long term (current) use of aspirin; Z79.01 Long term (current) use of anticoagulants; Z79.84 Long term (current) use of oral hypoglycemic drugs

== ENCOUNTER 2017-10-19 12:01 | Inpatient (IN) | payer OTHER, BC ==
--- NOTE | 2017-10-19 12:49 | EDPHY ---
H & P Time Seen by Provider: 10/19/17 12:47 HPI/ROS: Chief complaint. Pain and swelling right elbow HPI. 81-year-old male here with right elbow pain and swelling. The patient had been admitted for cellulitis of the right elbow. He had incision and drainage of abscess and apparently a communicated into the bursa. He was discharged home 2 days ago after improving on IV antibiotics. The diagnosis was MSSA. He was apparently sensitive to cephalexin however with oral antibiotics he has had increased pain and swelling and redness since being discharged. He saw both orthopedist and infectious disease physician today who both recommend admission for further IV antibiotics and MRI ruling out osteomyelitis. It is more stiff today. Increased pain and redness. No fever. Symptoms began 2 weeks ago after minor trauma when he struck his arm on had of a metal door around his elbow. ROS Constitutional. no fever/chills, no weakness Eyes. no problems with vision ENT. no sore throat, no nasal drainage Cardiovascular. no chest pain Respiratory. no shortness of breath, no cough Abdominal. no abdominal pain, no nausea/vomiting, no diarrhea . no problems urinating MS. Right elbow pain swelling Skin. no rash Lymph. no swollen glands Neuro. no headache, no dizziness, no difficulty walking or with speech Past Medical/Surgical History: The atrial fibrillation, cardiac stent, dyslipidemia Social History: , nonsmoker, no alcohol Smoking Status: Never smoked Physical Exam: General Appearance: Alert pleasant well-developed male mild distress. Afebrile Eyes: Pupils equal and round no pallor or injection. ENT, Mouth: Mucous membranes are moist. Respiratory: There are no retractions, lungs are clear to auscultation. Cardiovascular: Regular rate and rhythm. Gastrointestinal: Abdomen is soft and nontender, no masses, bowel sounds normal. Neurological: Awake and alert, sensory and motor exams grossly normal. Skin: Warm and dry, no rashes. Musculoskeletal: Neck is supple nontender. Extremities swelling redness to the right elbow. It goes about 3 in above the elbow and about 3 in down the forearm. There is a surgical incision present that he really is not draining much. Psychiatric: Patient is oriented X 3, there is no agitation. Constitutional: Initial Vital Signs Temperature (C) 36.6 C 10/19/17 12:06 Heart Rate 89 10/19/17 12:06 Respiratory Rate 16 10/19/17 12:06 Blood Pressure 132/83 H 10/19/17 12:06 O2 Sat (%) 93 10/19/17 12:06 O2 Delivery Mode Room Air Allergies/Adverse Reactions: No Known Allergies Allergy (Verified 10/18/17 10:43) Home Medications: Medication Instructions Recorded Ascorbic Acid [Vitamin C 500 mg 1,000 mg PO DAILY 10/08/17 (*)] Aspirin [Aspirin 325 mg (*)] 325 mg PO DAILY 10/08/17 Cholecalciferol Vit D3 [Vitamin D3 5,000 units PO DAILY 10/08/17 (*)] Furosemide [Lasix 20 MG (*)] 20 mg PO DAILY 10/08/17 Herbals/Supplements -Info Only 1 ea PO DAILY 10/08/17 Magnesium Oxide [Magnesium Oxide 400 mg PO BID 10/08/17 400 mg (*)] Metoprolol Succinate Xr [Toprol Xl 50 mg PO BID 10/08/17 50 mg (*)] Naproxen 500 mg PO DAILY PRN 10/08/17 Omeprazole [Prilosec 20 mg] 20 mg PO DAILY 10/08/17 Potassium Cl [Klor-Con 20 meq (*)] 20 meq PO DAILY 10/08/17 Rosuvastatin Calcium [Crestor 40mg 40 mg PO DAILY 10/08/17 (*)] Spironolactone [Aldactone 25 MG 25 mg PO DAILY 10/08/17 (*)] Warfarin Sodium [Coumadin 2.5MG 2.5 mg PO SUMOTUTHFRSA@16 10/08/17 (*)] Warfarin Sodium [Coumadin 5MG (*)] 5 mg PO WE@16 10/08/17 diphenhydrAMINE [Benadryl 25 MG 25 mg PO HS 10/08/17 (*)] predniSONE [Prednisone] 10 mg PO DAILY PRN 10/08/17 Cephalexin [Keflex (*)] 500 mg PO TID #30 cap 10/11/17 metFORMIN HCL [Glucophage 500 mg 500 mg PO BIDMEAL #60 tab 10/11/17 (*)] Ondansetron Odt [Zofran Odt] 4 mg PO Q4PRN PRN #20 tab 10/18/17 CEPHALEXIN 10/19/17 Medical Decision Making Procedures: IV Ancef. ED Course/Re-evaluation: I have consulted and discussed case with Dr. Knight, infectious Disease who recommends and 7 as opposed vancomycin I consulted discussed the case with Dr. Rouse who will see the patient in the emergency department. I consulted and discussed the case with Dr. Baltazar, hospitalist, who agrees to the admission Patient is and I discussed treatment plan including recommendation for admission. He expresses understanding Differential Diagnosis: Continuing cellulitis this seems to be worse after transition from IV to oral antibiotics. Concern is for osteomyelitis and abscess Departure - Departure Disposition: Home, Routine, Self-Care Clinical Impression: Cellulitis Qualifiers: Site of cellulitis: extremity Site of cellulitis of extremity: upper extremity Laterality: right Qualified Code(s): L03.113 - Cellulitis of right upper limb Condition: Fair Referrals: KELLEE RUFFIN [Primary Care Provider] - As per Instructions
[2017-10-19] MEDS ORDERED: VANCOMYCIN HCL/NORMAL SALINE 250 ML IV ONE (13:18)
[2017-10-19] MEDS ORDERED: ceFAZolin 2 GM/DEXTROSE 100 ML IV ONE (13:22)
[2017-10-19] MEDS ORDERED: ceFAZolin 2 GM/SWFI 2 GM/20 ML SYR IVP ONE (13:45)
[2017-10-19 14:27] LABS: PLATELET COUNT 140 10^3/uL (150-400)
--- NOTE | 2017-10-19 15:17 | ASMTCMCOM ---
CM Note CM Note Notes: 81 y/o with rt elbow celulitis recently DC'd on oral abx, readmitted. Pt now on IV ABX and will get an MRI. CM to follow for DC needs. Date Signed: 10/19/2017 03:17 PM Electronically Signed By:Beata Garcia LCSW
[2017-10-19] MEDS ORDERED: ACETAMINOPHEN 325 MG TAB PO PRN (15:53)
[2017-10-19] MEDS ORDERED: oxyCODONE IR 5 MG TAB PO PRN (15:53)
[2017-10-19] MEDS ORDERED: ONDANSETRON 4 MG/2 ML VIAL IVP PRN (15:53)
[2017-10-19] MEDS ORDERED: ONDANSETRON DISINTEGRATING 4 MG TAB PO PRN (16:07)
[2017-10-19] MEDS ORDERED: predniSONE 10 MG TAB PO PRN (16:07)
[2017-10-19] MEDS ORDERED: D50W 25 GM/50 ML SYR IVP PRN (16:09)
--- NOTE | 2017-10-19 16:33 | PDGENHP ---
History and Physical - History of Present Illness 81 yo male with recent admission for right elbow septic bursitis seen today at [facility] clinic for worsening symtoms and they recommended admission for IV abx and MRI for further evaluation.. He was discharged home 2 days ago after improving on IV antibiotics. The diagnosis was MSSA. He was apparently sensitive to cephalexin however with oral antibiotics he has had increased pain and swelling and redness since being discharged. Afebrile. Has a hx of Afib and CHF. denies cp, SOB, leg swelling, palpitations He takes Coumadin His major concern is anxiety regarding the MRI - Past Medical History atrial fibrillation (With DC cardioversion and transesophageal echocardiogram in 2009, atrial appendage noted, placed on systemic anticoagulation thereafter) , coronary artery disease (Status post 2 stents placed in 2009), diabetes type 2 (But most recent hemoglobin A1c 10%, no pharmacotherapy), hyperlipidemia - Surgical History Additional surgical history: Cardiac stent, DC cardioversion - Family History Additional family history: No family history of venous thromboembolism or skin disorders - Social History Smoking Status: Never smoked Alcohol Use: None Drug Use: None Data: CBC reviewed, unremarkable, no Leukocytosis MBP, unremarkable INR: no checked History Information - Allergies/Home Medication List Allergies/Adverse Reactions: No Known Allergies Allergy (Verified 10/19/17 13:56) Home Medications: Ascorbic Acid [Vitamin C 500 mg (*)] 1,000 mg PO DAILY 10/08/17 [Last Taken ] Aspirin [Aspirin 325 mg (*)] 325 mg PO DAILY 10/08/17 [Last Taken 10/18/17] Cholecalciferol Vit D3 [Vitamin D3 (*)] 5,000 units PO DAILY 10/08/17 [Last Taken 10/18/17] Furosemide [Lasix 20 MG (*)] 20 mg PO DAILY 10/08/17 [Last Taken 10/18/17] Herbals/Supplements -Info Only 1 ea PO DAILY 10/08/17 [Last Taken 10/18/17] Magnesium Oxide [Magnesium Oxide 400 mg (*)] 400 mg PO BID 10/08/17 [Last Taken 10/18/17] Metoprolol Succinate Xr [Toprol Xl 50 mg (*)] 50 mg PO BID 10/08/17 [Last Taken 10/19/17] Naproxen 500 mg PO DAILY PRN 10/08/17 [Last Taken Unknown] Omeprazole [Prilosec 20 mg] 20 mg PO DAILY 10/08/17 [Last Taken 10/18/17] Potassium Cl [Klor-Con 20 meq (*)] 20 meq PO DAILY 10/08/17 [Last Taken 10/18/17 ] Rosuvastatin Calcium [Crestor 40mg (*)] 40 mg PO DAILY 10/08/17 [Last Taken ] Spironolactone [Aldactone 25 MG (*)] 25 mg PO DAILY 10/08/17 [Last Taken ] diphenhydrAMINE [Benadryl 25 MG (*)] 25 mg PO HS 10/08/17 [Last Taken 10/18/17] predniSONE [Prednisone] 10 mg PO DAILY PRN 10/08/17 [Last Taken Unknown] Cephalexin [Keflex (*)] 500 mg PO TID 10/19/17 [Last Taken 10/19/17 AM] Warfarin Sodium [Coumadin 2MG (*)] 2 mg PO DAILY16 10/19/17 [Last Taken 10/17/17 ] I have personally reviewed and updated: medical history, social history - Past Medical History atrial fibrillation (With DC cardioversion and transesophageal echocardiogram in 2009, atrial appendage noted, placed on systemic anticoagulation thereafter) , coronary artery disease (Status post 2 stents placed in 2009), diabetes type 2 (But most recent hemoglobin A1c 10%, no pharmacotherapy), hyperlipidemia Additional medical history: Recent diagnosis of right upper extremity cellulitis , began with a notable bullous on the right ventral forearm - Surgical History Additional surgical history: Cardiac stent, DC cardioversion - Family History Additional family history: No family history of venous thromboembolism or skin disorders - Social History Smoking Status: Never smoked Additional social history: Patient reports that he is physically active at baseline, he last used a stationary bike 5 days ago and did not experience any chest pain or shortness of breath Review of Systems Review of Systems: ROS: 10pt was reviewed & negative except for what was stated in HPI & below Physical Exam Physical Exam: Temp Pulse Resp BP Pulse Ox 36.9 C 85 18 122/77 H 91 L 10/19/17 14:38 10/19/17 14:38 10/19/17 14:38 10/19/17 14:38 10/19/17 14:38 Constitutional: no apparent distress Eyes: PERRL, EOMI Ears, Nose, Mouth, Throat: moist mucous membranes, hearing normal Cardiovascular: regular rate and rhythym, No edema Respiratory: no respiratory distress, no rales or rhonchi Gastrointestinal: normoactive bowel sounds, soft, non-tender abdomen Genitourinary: no bladder fullness Skin: warm Neurologic: AAOx3 Psychiatric: interacting appropriately, not anxious, not encephalopathic Lymph, Heme, Immunologic: No petechiae Lab Data & Imaging Review 10/19/17 14:10 10/19/17 14:10 WBC 5.83 10^3/uL (3.80-9.50) 10/19/17 14:10 RBC 5.90 10^6/uL (4.40-6.38) 10/19/17 14:10 Hgb 14.7 g/dL (13.7-17.5) 10/19/17 14:10 Hct 44.9 % (40.0-51.0) 10/19/17 14:10 MCV 76.1 fL (81.5-99.8) L 10/19/17 14:10 MCH 24.9 pg (27.9-34.1) L 10/19/17 14:10 MCHC 32.7 g/dL (32.4-36.7) 10/19/17 14:10 RDW 19.4 % (11.5-15.2) H 10/19/17 14:10 Plt Count 140 10^3/uL (150-400) L 10/19/17 14:10 MPV 10.1 fL (8.7-11.7) 10/19/17 14:10 Neut % (Auto) 51.5 % (39.3-74.2) 10/19/17 14:10 Lymph % (Auto) 27.4 % (15.0-45.0) 10/19/17 14:10 Rankin % (Auto) 17.7 % (4.5-13.0) H 10/19/17 14:10 Eos % (Auto) 1.7 % (0.6-7.6) 10/19/17 14:10 Baso % (Auto) 1.2 % (0.3-1.7) 10/19/17 14:10 Nucleat RBC Rel Count 0.0 % (0.0-0.2) 10/19/17 14:10 Absolute Neuts (auto) 3.00 10^3/uL (1.70-6.50) 10/19/17 14:10 Absolute Lymphs (auto) 1.60 10^3/uL (1.00-3.00) 10/19/17 14:10 Absolute Monos (auto) 1.03 10^3/uL (0.30-0.80) H 10/19/17 14:10 Absolute Eos (auto) 0.10 10^3/uL (0.03-0.40) 10/19/17 14:10 Absolute Basos (auto) 0.07 10^3/uL (0.02-0.10) 10/19/17 14:10 Absolute Nucleated RBC 0.00 10^3/uL (0-0.01) 10/19/17 14:10 Immature Gran % 0.5 % (0.0-1.1) 10/19/17 14:10 Immature Gran # 0.03 10^3/uL (0.00-0.10) 10/19/17 14:10 Sodium 132 mEq/L (135-145) L 10/19/17 14:10 Potassium 4.5 mEq/L (3.5-5.2) 10/19/17 14:10 Chloride 101 mEq/L (97-110) 10/19/17 14:10 Carbon Dioxide 21 mEq/l (22-31) L 10/19/17 14:10 Anion Gap 10 mEq/L (8-16) 10/19/17 14:10 BUN 9 mg/dL (7-23) 10/19/17 14:10 Creatinine 0.9 mg/dL (0.7-1.3) 10/19/17 14:10 Estimated GFR > 60 10/19/17 14:10 Glucose 110 mg/dL (70-100) H 10/19/17 14:10 Calcium 9.2 mg/dL (8.5-10.4) 10/19/17 14:10 Assessment & Plan Assessment: #Right Elbow Septic Bursitis #Hyponatremia, sub acute, present during last admission #Afib #Chronic AC on Warfarin #DM, hold Metformin, start ISS Plan: -Inpatient admission -IV abx per ID -Obtain MRI of elbow -Benzo for anxiety -Check INR as not checked as of yet -Hold Coumadin -May need a Heparin bridge pending INR -NPO at midnight -Urine studies -Home meds -ID and Ortho to see -Full code
--- NOTE | 2017-10-19 16:34 | PCMIDPN ---
Assessment/Plan: Assessment: Right elbow cellulitis query abscess. Patient discharged last week on oral Keflex for completion of treatment for MSSA abscess of the right forearm that communicated with the right olecranon bursa. Patient began having some more localized swelling and redness over the last few days. Followed up with his general surgeon and also saw an orthopedic surgeon today. They alerted me to this worsening circumstance. He was readmitted back through the emergency room and started on cefazolin IV. Cultures were retaken from the wound. MRI is pending. Plan: 1. Continue IV cefazolin 2 g q.8 hours. 2. Obtain MRI of the right upper extremity. With contrast. 3. Follow clinical course. Subjective: Patient presents back to the emergency room with worsening erythema and tenderness over the right elbow area over the last few days. He has been taking oral Keflex 4 times daily as prescribed. Objective: Cefazolin # 1 Vital Signs Temp Pulse Resp BP Pulse Ox 36.9 C 85 18 122/77 H 91 L 10/19/17 14:38 10/19/17 14:38 10/19/17 14:38 10/19/17 14:38 10/19/17 14:38 Laboratory Results 10/19/17 14:10 10/19/17 14:10 - Physical Exam General Appearance: WD/WN, alert, no apparent distress, non-toxic Respiratory: lungs clear, normal breath sounds, No respiratory distress Cardiac/Chest: regular rate, rhythm, No tachycardia Skin: normal color, warm/dry, No rash Neuro/Psych: alert, normal mood/affect, oriented x 3 ICD10 Worksheet Patient Problems: Problems Problem Status Onset Cellulitis Acute Chest pain Acute Dyspnea Acute Elevated troponin Acute Rapid atrial fibrillation Acute Subtherapeutic anticoagulation Acute
[2017-10-19] MEDS ORDERED: LORazepam 0.5 MG TAB PO PRN (16:42)
[2017-10-19 17:29] LABS: INR 3.81 (0.83-1.16); PROTIME(PATIENT) 37.2 SEC (12.0-15.0)
--- NOTE | 2017-10-19 17:51 | PDMN ---
Medical Necessity Medical necessity: C/M review: est. > 2 MN LOS for eval and TX of acute and persistent right elbow septic bursitis requiring planned orthopedic consult, MRI or right elbow/upper extremity, ongoing IV Cefazolin consult, comorbid hyponatremia, subacute, present on last admission, atrial fibrillation , chronic anticoagulation on Warfarin, diabetes, history of recent hospitalization for atrial fibrillation treated with cardioversion, , right elbow septic bursitis (dx MSSA) S/P I&D treated with IV antibiotics in hospital , discharged on oral antibiotics, failed outpt. therapy, history of hyperlipidemia, type 2 diabetes, CAD S/P stents per H/P.
[2017-10-19] MEDS: INSULIN LISPRO 100 UNIT/ML SC SCH (18:07)
[2017-10-19] MEDS ORDERED: GADOBUTROL 10 ML VIAL IVP ONE (19:34)
[2017-10-19] MEDS: METOPROLOL SUCCINATE XR 50 MG TAB PO SCH (21:00)
[2017-10-19] MEDS: MAGNESIUM OXIDE 400 MG TAB PO SCH (21:01)
[2017-10-19] MEDS ORDERED: ceFAZolin 2 GM/DEXTROSE 100 ML IV SCH (22:00)
[2017-10-19] MEDS: ceFAZolin 2 GM/SWFI 2 GM/20 ML SYR IVP SCH (22:45)
[2017-10-20] MEDS: diphenhydrAMINE 25 MG CAP PO SCH ×2 (00:14→21:10)
[2017-10-20] MEDS: ceFAZolin 2 GM/SWFI 2 GM/20 ML SYR IVP SCH ×2 (06:03→14:30)
[2017-10-20 06:13] LABS: PLATELET COUNT 345 10^3/uL (150-400)
[2017-10-20] MEDS: INSULIN LISPRO 100 UNIT/ML SC SCH ×3 (08:45→19:09)
[2017-10-20] MEDS ORDERED: Herbals/Supplements -Info Only PO SCH (09:00)
[2017-10-20] MEDS ORDERED: NON-FORMULARY NEW DRUG (Omeprazole [Prilosec 20 Mg] 20 MG) PO SCH (09:00)
[2017-10-20] MEDS ORDERED: NS W/ 20 KCl/L 1,000 ML IV SCH (10:00)
[2017-10-20] MEDS: ROSUVASTATIN CALCIUM 40 MG TAB PO SCH (10:10)
[2017-10-20] MEDS: PANTOPRAZOLE SODIUM 40 MG TAB PO SCH (10:10)
[2017-10-20] MEDS: SPIRONOLACTONE 25 MG TAB PO SCH (10:10)
[2017-10-20] MEDS: METOPROLOL SUCCINATE XR 50 MG TAB PO SCH ×2 (10:11→21:10)
[2017-10-20] MEDS: FUROSEMIDE 20 MG TAB PO SCH (10:11)
[2017-10-20 10:22] LABS: INR 3.05 (0.83-1.16); PROTIME(PATIENT) 31.4 SEC (12.0-15.0)
--- NOTE | 2017-10-20 12:06 | HOSPPROG ---
Hospitalist Progress Note Assessment/Plan: #Right Elbow Septic Bursitis, cellulitis -No e/o of Osteo per MRI #Hyponatremia, sub acute, present during last admission -Now with normal sodium #pAfib #Chronic AC on Warfarin, mild elevation of INR #DM, hold Metformin, start ISS Plan: -Clinical improvement with IV Cefazolin, will cont. ID is following -He was made NPO for possible procedure. I d/w Orthopedics this morning that no planned surgical intervention. Cont with IV abx -change diet to Cards diet -home meds -Coumdain per Pharmacy -Full code Subjective: He thinks the elbow is getting better on IV abx. MRI obtained Objective: Vital Signs Temp Pulse Resp BP Pulse Ox 36.9 C 85 18 112/52 L 95 10/20/17 07:24 10/20/17 10:11 10/20/17 07:24 10/20/17 10:11 10/20/17 07:24 Microbiology 10/19/17 13:40 Gram Stain - Final Arm - Eswab Laboratory Results 10/20/17 05:58 10/20/17 05:58 10/19/17 10/20/17 10/21/17 05:59 05:59 05:59 Intake Total 220 Balance 220 PT 31.4 SEC (12.0-15.0) H 10/20/17 09:35 INR 3.05 (0.83-1.16) H 10/20/17 09:35 - Physical Exam Constitutional: no apparent distress Eyes: PERRL, EOMI Ears, Nose, Mouth, Throat: moist mucous membranes, hearing normal Cardiovascular: regular rate and rhythym, No edema Respiratory: no respiratory distress Gastrointestinal: normoactive bowel sounds Genitourinary: no bladder fullness Skin: warm Musculoskeletal: full muscle strength Neurologic: AAOx3 Psychiatric: interacting appropriately, not anxious, not encephalopathic Lymph, Heme, Immunologic: No petechiae ICD10 Worksheet Patient Problems: Problems Problem Status Onset Cellulitis Acute Chest pain Acute Dyspnea Acute Elevated troponin Acute Rapid atrial fibrillation Acute Subtherapeutic anticoagulation Acute
[2017-10-20] MEDS: CHOLECALCIFEROL VIT D3 1,000 UNITS TAB PO SCH (13:37)
[2017-10-20] MEDS: ASCORBIC ACID 500 MG TAB PO SCH (13:38)
[2017-10-20] MEDS: POTASSIUM CL 20 MEQ TAB PO SCH (13:39)
[2017-10-20] MEDS: MAGNESIUM OXIDE 400 MG TAB PO SCH ×2 (13:39→21:10)
[2017-10-20] MEDS ORDERED: DAPTOmycin 300 MG in NS 100 ML IV SCH (15:30)
[2017-10-20] MEDS ORDERED: WARFARIN SODIUM 1 MG TAB PO ONE (16:00)
--- NOTE | 2017-10-20 16:10 | PCMIDPN ---
Assessment/Plan: Assessment: Right elbow cellulitis. MRI shows a decompressed abscess cavity just proximal to the former operative incision. His erythema and swelling of the right elbow today is no worse than admission. Perhaps just a bit better. He is having significant nausea and vomiting may be an idiosyncratic response to the IV cefazolin. Will change to IV daptomycin. Zofran for nausea p.r.n. Wound culture taken in the ER does not show any growth yet. Plan: 1. Discontinue IV cefazolin 2 g q.8 hours. 2. start daptomycin IV Q 24 hours. 3. Follow appearance of the right upper extremity. 4. Check urinalysis. 10/20/17 16:05 Subjective: Patient is resting in his hospital bed. He has significant nausea and arose suddenly to vomit during our interview. States that his elbow might be a slight bit better. Objective: Cefazolin #1 Vital Signs Temp Pulse Resp BP Pulse Ox 37.1 C 88 18 92/45 L 95 10/20/17 15:36 10/20/17 15:36 10/20/17 15:36 10/20/17 15:36 10/20/17 15:36 Microbiology 10/19/17 13:40 Gram Stain - Final Arm - Eswab Laboratory Results 10/20/17 05:58 10/20/17 05:58 10/19/17 10/20/17 10/21/17 05:59 05:59 05:59 Intake Total 220 Balance 220 - Physical Exam General Appearance: WD/WN, alert, no apparent distress, non-toxic Respiratory: lungs clear, normal breath sounds, No respiratory distress Cardiac/Chest: regular rate, rhythm, No tachycardia Extremities: inflammation ( stable to improved), No non-tender, No normal inspection Abdomen: distended Skin: normal color, warm/dry, No rash Neuro/Psych: alert, normal mood/affect, oriented x 3 ICD10 Worksheet Patient Problems: Problems Problem Status Onset Cellulitis Acute Chest pain Acute Dyspnea Acute Elevated troponin Acute Rapid atrial fibrillation Acute Subtherapeutic anticoagulation Acute
[2017-10-20] MEDS: ONDANSETRON DISINTEGRATING 4 MG TAB PO PRN (19:43)
[2017-10-21 04:48] LABS: PLATELET COUNT 336 10^3/uL (150-400)
[2017-10-21 04:56] LABS: INR 2.92 (0.83-1.16); PROTIME(PATIENT) 30.4 SEC (12.0-15.0)
[2017-10-21] MEDS: ROSUVASTATIN CALCIUM 40 MG TAB PO SCH (08:35)
[2017-10-21] MEDS: ONDANSETRON DISINTEGRATING 4 MG TAB PO PRN ×2 (08:35→16:29)
[2017-10-21] MEDS: ASCORBIC ACID 500 MG TAB PO SCH (08:36)
[2017-10-21] MEDS: CHOLECALCIFEROL VIT D3 1,000 UNITS TAB PO SCH (08:36)
[2017-10-21] MEDS: POTASSIUM CL 20 MEQ TAB PO SCH (08:36)
[2017-10-21] MEDS: MAGNESIUM OXIDE 400 MG TAB PO SCH ×2 (08:36→20:24)
[2017-10-21] MEDS: PANTOPRAZOLE SODIUM 40 MG TAB PO SCH (08:37)
[2017-10-21] MEDS: FUROSEMIDE 20 MG TAB PO SCH (08:38)
[2017-10-21] MEDS: SPIRONOLACTONE 25 MG TAB PO SCH (08:38)
[2017-10-21] MEDS: DAPTOMYCIN IV SCH (08:38)
[2017-10-21] MEDS: METOPROLOL SUCCINATE XR 50 MG TAB PO SCH ×2 (08:38→20:24)
[2017-10-21] MEDS: NS IV SCH (08:38)
[2017-10-21] MEDS: INSULIN LISPRO 100 UNIT/ML SC SCH ×3 (09:56→17:15)
--- NOTE | 2017-10-21 11:49 | HOSPPROG ---
Hospitalist Progress Note Assessment/Plan: #Right Elbow Bursitis, cellulitis -No e/o of Osteo per MRI #Hyponatremia, sub acute, present during last admission, resolved #pAfib #Chronic AC on Warfarin, mild elevation of INR, pharmacy dosing #DM, hold Metformin, start ISS #N/V likely due to Cefazolin, now on Daptomycin Plan: -ID: appears improving, Erythema is better, ROM is better. On Daptomycin which replaced Cefazolin on 10/20 due to N/V. -No planned surgical intervention -Coumadin per pharmacy -PT consult, ordered today, help with ROM. He has been keeping his arm flexed and not moving it much. -Full code D/w patient, pts , and nurse at bedside Subjective: nause better since changing abx. labs reviewed in details, unremarkable. feels that righ arm cellulitis and swelling is getting better Objective: Vital Signs Temp Pulse Resp BP Pulse Ox 36.9 C 79 18 115/59 L 95 10/21/17 07:46 10/21/17 08:38 10/21/17 07:46 10/21/17 08:38 10/21/17 07:46 Microbiology 10/19/17 13:40 Gram Stain - Final Arm - Eswab Laboratory Results 10/21/17 04:25 10/21/17 04:25 10/20/17 10/21/17 10/22/17 05:59 05:59 05:59 Intake Total 220 1300 Balance 220 1300 PT 30.4 SEC (12.0-15.0) H 10/21/17 04:25 INR 2.92 (0.83-1.16) H 10/21/17 04:25 - Physical Exam Constitutional: no apparent distress Eyes: PERRL, EOMI Ears, Nose, Mouth, Throat: moist mucous membranes, hearing normal Cardiovascular: regular rate and rhythym, No edema Respiratory: no respiratory distress Gastrointestinal: normoactive bowel sounds, No distension Skin: warm, other (Right elbow draining incision, surrounding erythema and swelling improving.) Musculoskeletal: other (R arm ROM is normal but has pain with extension) Neurologic: AAOx3 Psychiatric: interacting appropriately, not anxious, not encephalopathic Lymph, Heme, Immunologic: No petechiae ICD10 Worksheet Patient Problems: Problems Problem Status Onset Cellulitis Acute Chest pain Acute Dyspnea Acute Elevated troponin Acute Rapid atrial fibrillation Acute Subtherapeutic anticoagulation Acute
--- NOTE | 2017-10-21 14:46 | PCMIDPN ---
Assessment/Plan: Assessment: Right elbow cellulitis. MRI shows a decompressed abscess cavity just proximal to the former operative incision. His erythema and swelling of the right elbow today is somewhat improved with less intensity. His nausea is much improved. He was able to have a meal without vomiting. Will continue to IV daptomycin. Zofran for nausea p.r.n. Wound culture taken in the ER does not show any growth yet. Plan: 1. Continue daptomycin IV Q 24 hours. 2. Follow appearance of the right upper extremity. Subjective: Patient is resting in his hospital bed. He is very pleased that his nausea significantly less. States that he can see the backside of his right elbow but it feels about the same. No fevers or chills. Objective: Daptomycin # 2 Vital Signs Temp Pulse Resp BP Pulse Ox 36.8 C 83 17 115/53 L 93 10/21/17 11:54 10/21/17 11:54 10/21/17 11:54 10/21/17 11:54 10/21/17 11:54 Microbiology 10/19/17 13:40 Gram Stain - Final Arm - Eswab Laboratory Results 10/21/17 04:25 10/21/17 04:25 10/20/17 10/21/17 10/22/17 05:59 05:59 05:59 Intake Total 220 1300 Balance 220 1300 - Physical Exam General Appearance: WD/WN, alert, no apparent distress, non-toxic Respiratory: lungs clear, normal breath sounds, No respiratory distress Cardiac/Chest: regular rate, rhythm, No tachycardia Extremities: inflammation, swelling ( decreased), erythema ( less intense), No non-tender, No normal inspection Skin: normal color, warm/dry, No rash Neuro/Psych: alert, normal mood/affect, oriented x 3 ICD10 Worksheet Patient Problems: Problems Problem Status Onset Cellulitis Acute Chest pain Acute Dyspnea Acute Elevated troponin Acute Rapid atrial fibrillation Acute Subtherapeutic anticoagulation Acute
[2017-10-21] MEDS ORDERED: WARFARIN SODIUM 2 MG TAB PO ONE (16:00)
[2017-10-21] MEDS: diphenhydrAMINE 25 MG CAP PO SCH (20:24)
[2017-10-22 05:07] LABS: INR 2.74 (0.83-1.16); PROTIME(PATIENT) 28.9 SEC (12.0-15.0)
[2017-10-22] MEDS: ONDANSETRON DISINTEGRATING 4 MG TAB PO PRN ×2 (08:17→12:59)
[2017-10-22] MEDS: INSULIN LISPRO 100 UNIT/ML SC SCH ×2 (08:23→12:54)
--- NOTE | 2017-10-22 09:11 | HOSPPROG ---
Hospitalist Progress Note Assessment/Plan: #Right upper elbow cellulitis -Daptomycin. Platelets stable. Wound consult. discuss duration with ID #A fib: cardioverted, note LA appendage. On chronic AC #Compensated HF: cont BB, Lasix #CAD: 2 stents 2009. BB, statin #DM: sugars controlled here; not eating much. Restart Metformin once daily since wasn't tolerating it at home. Monitor for side effects #Hyponatremia: resolved #Diet: regular #DVT ppx: on coumadin #Disp: warrants inpatient admission for IV abx Subjective: can extend arm straight today with min pain Objective: Vital Signs Temp Pulse Resp BP Pulse Ox 36.9 C 84 16 112/52 L 94 10/22/17 07:33 10/22/17 07:33 10/22/17 07:33 10/22/17 07:33 10/22/17 07:33 Microbiology 10/19/17 13:40 Gram Stain - Final Arm - Eswab Laboratory Results 10/21/17 04:25 10/21/17 04:25 10/21/17 10/22/17 10/23/17 05:59 05:59 05:59 Intake Total 1300 1100 Balance 1300 1100 PT 28.9 SEC (12.0-15.0) H 10/22/17 04:35 INR 2.74 (0.83-1.16) H 10/22/17 04:35 - Physical Exam Constitutional: no apparent distress Eyes: PERRL Ears, Nose, Mouth, Throat: moist mucous membranes, hearing normal Cardiovascular: regular rate and rhythym, no murmur, rub, or gallop, No edema Respiratory: no respiratory distress, no rales or rhonchi Gastrointestinal: normoactive bowel sounds, soft, non-tender abdomen Genitourinary: no bladder fullness Skin: warm Musculoskeletal: other (right elbow wound with mild purluence. Redness surrounding the joint, warm. No pain) Neurologic: AAOx3, CN II-XII Intact ICD10 Worksheet Patient Problems: Problems Problem Status Onset Cellulitis Acute Chest pain Acute Dyspnea Acute Elevated troponin Acute Rapid atrial fibrillation Acute Subtherapeutic anticoagulation Acute
[2017-10-22] MEDS: DAPTOMYCIN IV SCH (09:23)
[2017-10-22] MEDS: NS IV SCH (09:23)
[2017-10-22] MEDS: SPIRONOLACTONE 25 MG TAB PO SCH (09:24)
[2017-10-22] MEDS: CHOLECALCIFEROL VIT D3 1,000 UNITS TAB PO SCH (09:24)
[2017-10-22] MEDS: ROSUVASTATIN CALCIUM 40 MG TAB PO SCH (09:24)
[2017-10-22] MEDS: POTASSIUM CL 20 MEQ TAB PO SCH (09:25)
[2017-10-22] MEDS: FUROSEMIDE 20 MG TAB PO SCH (09:25)
[2017-10-22] MEDS: METOPROLOL SUCCINATE XR 50 MG TAB PO SCH ×2 (09:25→21:25)
[2017-10-22] MEDS: MAGNESIUM OXIDE 400 MG TAB PO SCH ×2 (09:25→21:25)
[2017-10-22] MEDS: PANTOPRAZOLE SODIUM 40 MG TAB PO SCH (09:25)
[2017-10-22] MEDS: ASCORBIC ACID 500 MG TAB PO SCH (09:27)
[2017-10-22] MEDS ORDERED: CHOLECALCIFEROL VIT D3 1,000 UNITS TAB PO SCH (13:37)
[2017-10-22] MEDS ORDERED: WARFARIN SODIUM 2 MG TAB PO SCH (16:00)
--- NOTE | 2017-10-22 17:10 | ASMTCMCOM ---
CM Note CM Note Notes: PT is recommending home independent at this time. Continue to monitor if patient will need ongoing IV ABX. CM available for any d/c needs that might arise. CM will follow. Date Signed: 10/22/2017 05:09 PM Electronically Signed By:Francisca Ferrera LCSW
[2017-10-22] MEDS ORDERED: ALTEPLASE 2 MG VIAL IVP PRN (18:05)
--- NOTE | 2017-10-22 18:14 | PCMIDPN ---
Assessment/Plan: Assessment/Plan: * Right upper extremity cellulitis/abscess/septic bursitis status post incision and drainage due to MSSA: Recurrent symptoms after transition to oral therapy and upon readmission did not tolerate cefazolin due to GI intolerance. Therefore is now completing course of therapy with daptomycin. Plan 10 day course of therapy provided shows ongoing clinical improvement. Will place PICC line. Anticipate completing antibiotic therapy as outpatient. Weekly CPK while on daptomycin. If logistics can be completed, anticipate should be feasible for discharge tomorrow. 10/22/17 18:10 Subjective: Patient feels significantly improved with less right elbow pain. Range of motion markedly improved. Objective: Vital Signs Temp Pulse Resp BP Pulse Ox 36.8 C 89 18 101/64 94 10/22/17 15:43 10/22/17 15:43 10/22/17 15:43 10/22/17 15:43 10/22/17 15:43 Microbiology 10/19/17 13:40 Gram Stain - Final Arm - Eswab Wound Culture - Final Laboratory Results 10/21/17 04:25 10/21/17 04:25 10/21/17 10/22/17 10/23/17 05:59 05:59 05:59 Intake Total 1300 1100 52 Balance 1300 1100 52 Daptomycin # 3 - Physical Exam General Appearance: alert, no apparent distress EENT: No scleral icterus, No thrush Extremities: inflammation (Right upper extremity incision site clean with granulation tissue; bursal thickening present; erythema markedly decreased; desquamation of skin beginning; able to fully extend arm) Skin: No rash ICD10 Worksheet Patient Problems: Problems Problem Status Onset Cellulitis Acute Chest pain Acute Dyspnea Acute Elevated troponin Acute Rapid atrial fibrillation Acute Subtherapeutic anticoagulation Acute
--- NOTE | 2017-10-22 18:18 | PDIAF ---
- Diagnosis Diagnosis: Right upper extremity cellulitis/abscess Code Status: Full Code - Medication Management Discharge Medications: Medications to Continue on Transfer Ascorbic Acid [Vitamin C 500 mg (*)] 1,000 mg PO DAILY 10/08/17 [Last Taken ] Aspirin [Aspirin 325 mg (*)] 325 mg PO DAILY 10/08/17 [Last Taken 10/18/17] Cholecalciferol Vit D3 [Vitamin D3 (*)] 5,000 units PO DAILY 10/08/17 [Last Taken 10/18/17] Furosemide [Lasix 20 MG (*)] 20 mg PO DAILY 10/08/17 [Last Taken 10/18/17] Herbals/Supplements -Info Only 1 ea PO DAILY 10/08/17 [Last Taken 10/18/17] Magnesium Oxide [Magnesium Oxide 400 mg (*)] 400 mg PO BID 10/08/17 [Last Taken 10/18/17] Metoprolol Succinate Xr [Toprol Xl 50 mg (*)] 50 mg PO BID 10/08/17 [Last Taken 10/19/17] Naproxen 500 mg PO DAILY PRN 10/08/17 [Last Taken Unknown] Omeprazole [Prilosec 20 mg] 20 mg PO DAILY 10/08/17 [Last Taken 10/18/17] Potassium Cl [Klor-Con 20 meq (*)] 20 meq PO DAILY 10/08/17 [Last Taken 10/18/17 ] Rosuvastatin Calcium [Crestor 40mg (*)] 40 mg PO DAILY 10/08/17 [Last Taken ] Spironolactone [Aldactone 25 MG (*)] 25 mg PO DAILY 10/08/17 [Last Taken ] diphenhydrAMINE [Benadryl 25 MG (*)] 25 mg PO HS 10/08/17 [Last Taken 10/18/17] predniSONE [Prednisone] 10 mg PO DAILY PRN 10/08/17 [Last Taken Unknown] metFORMIN HCL [Glucophage 500 mg (*)] 500 mg PO BIDMEAL #60 tab 10/11/17 [Last Taken 10/19/17] Ondansetron Odt [Zofran Odt] 4 mg PO Q4PRN PRN #20 tab 10/18/17 [Last Taken Unknown] Cephalexin [Keflex (*)] 500 mg PO TID 10/19/17 [Last Taken 10/19/17 AM] Warfarin Sodium [Coumadin 2MG (*)] 2 mg PO DAILY16 10/19/17 [Last Taken 10/17/17 ] Counter Person Antibiotics: Daptomycin 300 mg IV Q 24 hr Skilled Nursing Antibiotic Stop Date: 10/29/17 Discharge Medications: Refer to the Discharge Home Medication list for PRN reason. PICC Care - Routine: Yes - Labs/Radiology CBC w/diff Date: 10/25/17 CMP Date: 10/25/17 CPK Date: 10/25/17 Call or Fax Lab and Imaging Results to: Dr. Wilcox, - Follow Up Care Current Providers and Referrals: KELLEE RUFFIN [Primary Care Provider] - As per Instructions
--- NOTE | 2017-10-22 18:42 | WOCRNPDOC ---
WOCRN Advanced Assessment Note - Skin Integrity Problem, Advanced Assess Right Elbow Surgical Wound/Incision Dressing Type: ABD Pad, Kerlix Dressing Description: Clean/Dry, Intact Exudate Amount: Scant Exudate Characteristic(s): Serosanguinous Integumentary Issue Intervention: Dressing Changed, Dressing Initialed & Dated [place] Wound Tissue: Erythema, Hot, Erythema Marked by Wound RN, Indurated, Shiny Nikkie Wound Swelling: Moderate Wound Bed Constitution: Dried Exudate Site Measurement - Head-to-Toe Length X Width X Depth (cm): 4.5x1x0.4 Skin Integrity Problem Comment: Site of previous I and D that has not yet healed. Wound bed unable to be visualized. Will moisten with silvasorb and then cover with non border foam to moisten. Will check in again on Sun. Alba CHENG aware.
[2017-10-22] MEDS: diphenhydrAMINE 25 MG CAP PO SCH (21:25)
[2017-10-23 05:52] LABS: INR 2.56 (0.83-1.16); PROTIME(PATIENT) 27.5 SEC (12.0-15.0)
[2017-10-23] MEDS: ONDANSETRON DISINTEGRATING 4 MG TAB PO PRN (08:26)
[2017-10-23] MEDS ORDERED: metFORMIN HCL 500 MG TAB PO SCH (09:00)
[2017-10-23] MEDS: MAGNESIUM OXIDE 400 MG TAB PO SCH (10:00)
[2017-10-23] MEDS: METOPROLOL SUCCINATE XR 50 MG TAB PO SCH (10:01)
[2017-10-23] MEDS: POTASSIUM CL 20 MEQ TAB PO SCH (10:01)
[2017-10-23] MEDS: ASCORBIC ACID 500 MG TAB PO SCH (10:02)
[2017-10-23] MEDS: PANTOPRAZOLE SODIUM 40 MG TAB PO SCH (10:03)
[2017-10-23] MEDS: ROSUVASTATIN CALCIUM 40 MG TAB PO SCH (10:03)
[2017-10-23] MEDS: FUROSEMIDE 20 MG TAB PO SCH (10:03)
[2017-10-23] MEDS: NS IV SCH (10:07)
[2017-10-23] MEDS: DAPTOMYCIN IV SCH (10:07)
[2017-10-23] MEDS: SPIRONOLACTONE 25 MG TAB PO SCH (10:08)
--- NOTE | 2017-10-23 11:11 | ASMTCMCOM ---
CM Note CM Note Notes: Chart reviewed. Met with patient to review dc plan of care. He is to go home on IV antb daily and will need wound care for his elbow. Referrals to [facility] and [facility] to provide care. Patient accepted to both. PICC line to be placed will upload reports when available. Per [facility] home infusion covered 100 %. She is to meet with patient. CM to follow. Date Signed: 10/23/2017 11:10 AM Electronically Signed By:Cecilia Neal RN
--- NOTE | 2017-10-23 11:25 | PDIAF ---
- Diagnosis Diagnosis: Right upper extremity cellulitis/abscess Code Status: Full Code - Medication Management Discharge Medications: Medications to Continue on Transfer Ascorbic Acid [Vitamin C 500 mg (*)] 1,000 mg PO DAILY 10/08/17 [Last Taken ] Aspirin [Aspirin 325 mg (*)] 325 mg PO DAILY 10/08/17 [Last Taken 10/18/17] Cholecalciferol Vit D3 [Vitamin D3 (*)] 5,000 units PO DAILY 10/08/17 [Last Taken 10/18/17] Furosemide [Lasix 20 MG (*)] 20 mg PO DAILY 10/08/17 [Last Taken 10/18/17] Herbals/Supplements -Info Only 1 ea PO DAILY 10/08/17 [Last Taken 10/18/17] Magnesium Oxide [Magnesium Oxide 400 mg (*)] 400 mg PO BID 10/08/17 [Last Taken 10/18/17] Metoprolol Succinate Xr [Toprol Xl 50 mg (*)] 50 mg PO BID 10/08/17 [Last Taken 10/19/17] Naproxen 500 mg PO DAILY PRN 10/08/17 [Last Taken Unknown] Omeprazole [Prilosec 20 mg] 20 mg PO DAILY 10/08/17 [Last Taken 10/18/17] Potassium Cl [Klor-Con 20 meq (*)] 20 meq PO DAILY 10/08/17 [Last Taken 10/18/17 ] Rosuvastatin Calcium [Crestor 40mg (*)] 40 mg PO DAILY 10/08/17 [Last Taken ] Spironolactone [Aldactone 25 MG (*)] 25 mg PO DAILY 10/08/17 [Last Taken ] diphenhydrAMINE [Benadryl 25 MG (*)] 25 mg PO HS 10/08/17 [Last Taken 10/18/17] predniSONE [Prednisone] 10 mg PO DAILY PRN 10/08/17 [Last Taken Unknown] metFORMIN HCL [Glucophage 500 mg (*)] 500 mg PO BIDMEAL #60 tab 10/11/17 [Last Taken 10/19/17] Ondansetron Odt [Zofran Odt] 4 mg PO Q4PRN PRN #20 tab 10/18/17 [Last Taken Unknown] Cephalexin [Keflex (*)] 500 mg PO TID 10/19/17 [Last Taken 10/19/17 AM] Warfarin Sodium [Coumadin 2MG (*)] 2 mg PO DAILY16 10/19/17 [Last Taken 10/17/17 ] Camera Mechanic Antibiotics: Daptomycin 300 mg IV Q 24 hr Nursing Home Antibiotic Stop Date: 10/29/17 Discharge Medications: Refer to the Discharge Home Medication list for PRN reason. PICC Care - Routine: Yes - Orders Services needed: Home Care, Registered Nurse Home Care Face to Face: I certify that this patient was under my care and that I had the required [id number] encounter meeting the encounter requirements on the discharge day. My findings support the fact that the patient is homebound as defined in Home Care Face to Face Continued: CMS Chapter 7 Medicare Benefits Manual 30.1.1 , The condition of the patient is such that there exists a normal inability to leave home and consequently, leaving home would require a considerable and taxing effort. Diet Recommendation: no restrictions on diet, cardiac -low fat low salt Diet Texture: Regular Texture Diet Wound Care Instructions: per wound care recommendations - Labs/Radiology CBC w/diff Date: 10/25/17 CMP Date: 10/25/17 CPK Date: 10/25/17 Call or Fax Lab and Imaging Results to: Dr. Wilcox, - Follow Up Care Current Providers and Referrals: KELLEE RUFFIN [Primary Care Provider] - As per Instructions Chapin Wilcox MD [Medical Doctor] -
[2017-10-23 12:51] VITALS: BP 108/56; PULSE 88; RESP 16; TEMP 98; O2SAT 95
--- NOTE | 2017-10-23 13:04 | GDS ---
[f rep st] DISCHARGE SUMMARY DISCHARGE DIAGNOSES: 1. Right elbow bursitis with cellulitis. 2. History of permanent atrial fibrillation. 3. Compensated systolic heart failure. 4. Chronic anticoagulation. 5. Type 2 diabetes on orals. 6. Hyperlipidemia. HPI: An 81-year-old male with recent admission for right elbow bursitis, who was seen by ID and [facility] for worsening symptoms and they recommended admission for IV antibiotics. Initial culture s howed MSSA and he was discharged home previously on Keflex. However, he noted increased pain, swelli ng, and redness in the right elbow since discharge. He has remained afebrile without any chills or s weats. HOSPITAL COURSE BY PROBLEM: 1. Right elbow septic bursitis/cellulitis, failed outpatient treatment on Keflex. He was started on Ancef here but had nausea and vomiting, thus was transitioned to daptomycin. Wound is healing. He can continue IV daptomycin through 10/29/2017 with weekly CK levels. Wound Care saw him here and Pending sale to [facility] will visit him at home and help with antibiotics. 2. Hypovolemic hyponatremia. This resolved. 3. Permanent atrial fibrillation, rate controlled. Coumadin at goal. 4. Type 2 diabetes. Continue metformin. DISPOSITION: Stable for discharge home with Wound [facility] visits as well as IV antibiotic infusion . NEW MEDICATIONS: Daptomycin 300 mg daily through 10/29/2017. FOLLOW UP: 1. Primary care physician. 2. Dr. Wilcox. LABS: Weekly CK, CBC, and CMP. PHYSICAL EXAM: VITAL SIGNS: Today, temperature 36.9, blood pressure 103/55, heart rates in the 80s, respirations 12, 92% on room air. GENERAL: He is well-appearing, no acute distress. HEENT: PERRL A. EOMI. Oropharynx clear. CV: Regular rate and rhythm. No murmurs, gallops, rubs. LUNGS: No c rackles. ABDOMEN: Soft, nontender, nondistended. MUSCULOSKELETAL: Moving all 4 extremities. Left upper extremity PICC line in place without redness or irritation. RIGHT UPPER EXTREMITY: Right elb ow wound with purulent drainage, surrounding erythema, still warm to touch, but has good extension wi thout pain. NEURO: 2 through 12 intact. PSYCH: Alert and oriented x3. /[id number]/MODL
--- NOTE | 2017-10-23 14:46 | ASMTCMCOM ---
CM Note CM Note Notes: All final orders and PICC report to [place] and [facility]. Per Manda at [facility] they can do home infusions daily for patient for 8 days. Discussed with patient and who are agreeable. CM available if other needs arise. Date Signed: 10/23/2017 02:45 PM Electronically Signed By:Cecilia Neal RN
--- NOTE | 2017-10-24 11:14 | ASDISCHSUM ---
Discharge Information Plan Status: Medically Cleared to Leave: Discharge Date:10/23/2017 03:03 PM D/C Disposition: ADT D/C Disposition:Home, Routine, Self-Care Projected Discharge Date:10/23/2017 11:00 AM Transportation at D/C: Discharge Delay Reason: Follow-Up Date:10/23/2017 11:00 AM Discharge Slot: Final Diagnosis: Placement Information Referral Type:Home Infusion Referral ID:[id number] Provider Name:[facility] Address 1:[address] Address 2: City:[place] Selection Factors: State:[place] Referral Type:*Home Health Care Services Referral ID:[id number] Provider Name:[facility] Address [address] Address 2: City:[place] Selection Factors: State:[place] Patient Contact Information Contact Name:FARIHA Relationship: Address:[address] Work Phone: City:[place] Alternate Phone: [facility]/Zip Code:[place] [address] Email: Financial Information Financial Class:Medicare Primary Plan Desc:MEDICARE INPATIENT Primary Plan Number:[id number] Secondary Plan Desc:[employer] [facility] Secondary Plan Number:[id number] Assessment Information [facility] CM Progress Note CM Note CM Note Notes: 81 y/o with rt elbow celulitis recently DC'd on oral abx, readmitted. Pt now on IV ABX and will get an MRI. CM to follow for DC needs. Date Signed: 10/19/2017 03:17 PM Electronically Signed By:Beata Garcia LCSW [facility] CM Progress Note CM Note CM Note Notes: PT is recommending home independent at this time. Continue to monitor if patient will need ongoing IV ABX. CM available for any d/c needs that might arise. CM will follow. Date Signed: 10/22/2017 05:09 PM Electronically Signed By:Francisca Ferrera LCSW Case Management Discharge Plan Note Case Management Discharge Discharge Order Complete? Answers: Yes Patient to Obtain Answers: Other Notes: [facility] Medications Transportation Arranged Answers: Family/Friends Faxed Final Orders Answers: Yes Notes: [facility] and [facility] Family Notified Answers: Yes Date Signed: 10/23/2017 11:07 AM Electronically Signed By:Cecilia Neal RN [facility] CM Progress Note CM Note CM Note Notes: Chart reviewed. Met with patient to review dc plan of care. He is to go home on IV antb daily and will need wound care for his elbow. Referrals to [facility] and [facility] to provide care. Patient accepted to both. PICC line to be placed will upload reports when available. Per [facility] home infusion covered 100 %. She is to meet with patient. CM to follow. Date Signed: 10/23/2017 11:10 AM Electronically Signed By:Cecilia Neal RN [facility] CM Progress Note CM Note CM Note Notes: All final orders and PICC report to [place] and [facility]. Per Manda at [facility] they can do home infusions daily for patient for 8 days. Discussed with patient and who are agreeable. CM available if other needs arise. Date Signed: 10/23/2017 02:45 PM Electronically Signed By:Cecilia Neal RN Intervention Information Intervention Type:*IM-Signed Date of Service:10/23/2017 12:35 PM Patient Type:Inpatient Staff Member:Lisa Herrmann Hours: Discipline: Severity: Comment:
== END 2017-10-23 15:03 | disposition home or self-care (01) | DRG 558 ==
LOC: F1N 14:34
PROVIDERS: ADMIT Internal Medicine; ATTEND Internal Medicine
PROC: 02HV33Z Insertion of Infusion Device into Superior Vena Cava, Percutaneous Approach (ICD-10-PCS; principal; 2017-10-23)
DX: M70.31 Other bursitis of elbow, right elbow (principal); L03.113 Cellulitis of right upper limb; I48.2 Chronic atrial fibrillation; E11.9 Type 2 diabetes mellitus without complications; E87.1 Hypo-osmolality and hyponatremia; E78.5 Hyperlipidemia, unspecified; I25.10 Atherosclerotic heart disease of native coronary artery without angina pectoris; I50.20 Unspecified systolic (congestive) heart failure; Z95.5 Presence of coronary angioplasty implant and graft; Z79.01 Long term (current) use of anticoagulants
CPT/HCPCS: 96374; 97161-GP; A9585; C1751; G8978-GP-CI; G8979-GP-CI; G8980-GP-CI; J0690; J0878; J1815; J2405; J3370

== ENCOUNTER → 2018-07-26 | Outpatient (CLI) | payer OTHER, BC | LOC: BHFA 08:30 | PROVIDERS: ATTEND Internal Medicine Cardiovascular Disease | DX: I25.10 Atherosclerotic heart disease of native coronary artery without angina pectoris (principal); R06.02 Shortness of breath | CPT/HCPCS: 78452; 93017; A9500; J2785 ==